=== PATIENT | male | born 1940 | race Caucasian/White ===

== ENCOUNTER → 2016-10-29 | Outpatient (CLI) | payer MEDICARE, OTHER | LOC: OD 11:35 | PROVIDERS: ATTEND Radiology Radiation Oncology | DX: C61 Malignant neoplasm of prostate (principal) | CPT/HCPCS: 36415; 84153 ==

== ENCOUNTER → 2016-11-19 | Outpatient (CLI) | payer MEDICARE, OTHER ==
--- NOTE | 2016-11-19 16:35 | RADIOLOGY REPORT (SQ) ---
EXAM DESCRIPTION: CT CHEST WITH COMPLETED DATE/TIME: 11/19/2016 3:50 pm REASON FOR STUDY: COUGH/COPD, UNSPECIFIED R05 COUGH J44.9 CHRONIC OBSTRUCTIVE PULMONARY DISEASE, U NSPECIFIED COMPARISON: 10/03/2014 TECHNIQUE: CT scan of the chest performed using helical scanning technique with dynamic intravenous contrast injection. Images reviewed with lung, soft tissue and bone windows. Reconstructed coronal and sagittal MPR images reviewed. All images stored on PACS. All CT scanners at this facility use dose modulation, iterative reconstruction, and/or weight based d osing when appropriate to reduce radiation dose to as low as reasonably achievable (ALARA). [facility]: Dose Right [facility]: CareDose [facility]: Dose Right [facility]: Teradose 4D [facility]: [employer] CONTRAST TYPE AND DOSE: contrast/concentration: Isovue 370.00 mg/ml; Total Contrast Delivered: 80.0 ml; Total Saline Delivered: 55.0 ml RENAL FUNCTION: Creatinine 1.1 RADIATION DOSE: Up-to-date CT equipment and radiation dose reduction techniques were employed. CTDIv ol: 13.6 mGy. DLP: 523 mGy-cm. . LIMITATIONS: None. FINDINGS: LUNGS AND PLEURA: No opacities, nodules, masses. No pneumothorax. No effusions. HILAR AND MEDIASTINAL STRUCTURES: No identified masses or abnormal nodes. HEART AND VASCULAR STRUCTURES: No aneurysm or dissection. No central pulmonary emboli. No pericardi al effusion. HARDWARE: None in the chest. UPPER ABDOMEN: No significant findings. Limited exam. THYROID AND OTHER SOFT TISSUES: No masses. No adenopathy. BONES: No significant finding. OTHER: No other significant finding. IMPRESSION: NORMAL CT OF THE CHEST WITH IV CONTRAST. TECHNICAL DOCUMENTATION: JOB ID: [id number] Quality ID # [id number]: Final reports with documentation of one or more dose reduction techniques (e.g., Au tomated exposure control, adjustment of the mA and/or kV according to patient size, use of iterative reconstruction technique) 2010 [employer]- All Rights Reserved
== END ==
LOC: RAD 15:10
PROVIDERS: ATTEND Internal Medicine
DX: J44.9 Chronic obstructive pulmonary disease, unspecified (principal); R05 Cough
CPT/HCPCS: 71260; 82565

== ENCOUNTER 2016-12-02 15:48 | Emergency (ER) | payer MEDICARE, OTHER ==
[2016-12-02] MEDS ORDERED: ACETAMINOPHEN 325 MG TABLET PO ONE (16:06)
--- NOTE | 2016-12-02 16:09 | ER Document Report ---
ED Medical Screen (RME) - General Chief Complaint: Eye Pain Stated Complaint: HEAD LACERATION Time Seen by Provider: 12/02/16 16:03 Notes: Patient is a 76-year-old male, past medical history chronic back pain, COPD, presents with right eyelid laceration and double vision after he hit his right orbit on his car door. No double vision or blurry vision before the incident. Unknown last tetanus status. Denies LOC, neck pain or heavy bleeding. PE: 1.5 cm right upper eyelid laceration/skin tear, PERRL, EOMI, tenderness over right superior orbit I have greeted and performed a rapid initial assessment of this patient. A comprehensive ED assessment and evaluation of the patient, analysis of test results and completion of the medical decision making process will be conducted by additional ED providers. TRAVEL OUTSIDE OF THE [place] IN LAST 30 DAYS: No - Related Data Allergies/Adverse Reactions: No Known Allergies Allergy (Verified 11/24/12 13:48) Past Medical History - Past Medical History Cardiac Medical History: Reports: Hx Hypertension Denies: Hx Coronary Artery Disease, Hx Heart Attack Pulmonary Medical History: Reports: Hx Asthma, Hx Bronchitis, Hx COPD, Hx Pneumonia Neurological Medical History: Denies: Hx Cerebrovascular Accident, Hx Seizures Renal/ Medical History: Denies: Hx Peritoneal Dialysis GI Medical History: Reports: Hx Gastroesophageal Reflux Disease Musculoskeltal Medical History: Reports Hx Arthritis Psychiatric Medical History: Reports: Hx Depression Past Surgical History: Reports: Hx Orthopedic Surgery - Immunizations Immunizations up to date: Yes Hx Diphtheria, Pertussis, Tetanus Vaccination: No Physical Exam - Vital signs Vitals: Temp Pulse Resp BP Pulse Ox 97.7 F 65 16 146/92 H 92 12/02/16 15:53 12/02/16 15:53 12/02/16 15:53 12/02/16 15:53 12/02/16 15:53 Course - Vital Signs Vital signs: Temp Pulse Resp BP Pulse Ox 97.7 F 65 16 146/92 H 92 12/02/16 15:53 12/02/16 15:53 12/02/16 15:53 12/02/16 15:53 12/02/16 15:53
[2016-12-02] MEDS ORDERED: DIPH/PERTUSS(ACELL)/TETANUS VAC/PF 0.5 ML SYR (>=10YO) IM ONE (16:27)
--- NOTE | 2016-12-02 16:37 | ER Document Report ---
ED General - General Stated Complaint: HEAD LACERATION Time Seen by Provider: 12/02/16 16:03 Notes: Presents with right eye pain and blurry vision, acute onset about an hour ago, moderate, worse with looking up, since he smacked his right orbital region on a van in his wheelchair. No loss of consciousness. No flashes or floaters. There is a skin tear to his right upper eyebrow. TRAVEL OUTSIDE OF THE [place] IN LAST 30 DAYS: No - Related Data Allergies/Adverse Reactions: bee venom protein (honey bee) Allergy (Verified 12/02/16 16:12) honey Allergy (Verified 12/02/16 16:11) Past Medical History - Social History Smoking Status: Smoker,Current Status Unk Chew tobacco use (# tins/day): No Drug Abuse: None Family History: Reviewed & Not Pertinent Patient has suicidal ideation: No Patient has homicidal ideation: No - Past Medical History Cardiac Medical History: Reports: Hx Hypertension Denies: Hx Coronary Artery Disease, Hx Heart Attack Pulmonary Medical History: Reports: Hx Asthma, Hx Bronchitis, Hx COPD, Hx Pneumonia Neurological Medical History: Denies: Hx Cerebrovascular Accident, Hx Seizures Renal/ Medical History: Denies: Hx Peritoneal Dialysis GI Medical History: Reports: Hx Gastroesophageal Reflux Disease Musculoskeltal Medical History: Reports Hx Arthritis Psychiatric Medical History: Reports: Hx Depression Past Surgical History: Reports: Hx Orthopedic Surgery - Immunizations Immunizations up to date: Yes Hx Diphtheria, Pertussis, Tetanus Vaccination: No Hx Pneumococcal Vaccination: 06/08/04 Review of Systems - Review of Systems Notes: GEN: Denies fever, chills, weight loss ENT: Denies sore throat, nasal discharge, ear pain EYES: Blurry vision, right eye pain CV: Denies chest pain, palpitations, edema RESP: Denies cough, shortness of breath, wheezing GI: Denies abdominal pain, nausea, vomiting, diarrhea MSK: Denies joint pain/swelling, edema, SKIN: Denies rash, skin lesions LYMPH: Denies swollen glands/lymph nodes NEURO: Denies headache, focal weakness or numbness, dizziness PSYCH: Denies depression, suicidal or homicidal ideation Physical Exam - Vital signs Vitals: Temp Pulse Resp BP Pulse Ox 97.7 F 65 16 146/92 H 92 12/02/16 15:53 12/02/16 15:53 12/02/16 15:53 12/02/16 15:53 12/02/16 15:53 - Notes Notes: General: No acute distress, well-nourished Head: Atraumatic, normocephalic ENT: Mouth normal, oropharynx moist, no exudates or tonsillar enlargement Eyes: 1.5 cm skin tear on the upper eye brow/orbital rim impaired upgaze on the right. Focal small amount of subconjunctival hemorrhage at about 4:00, 1 mm x 2 mm. Pupils are equal round and reactive bilaterally at 2 mm. Neck: No JVD, supple, no guarding CVS: Normal rate, regular rhythm, no murmurs Resp: No resp distress, equal and normal breath sounds bilaterally GI: Nondistended, soft, no tenderness to palpation, no rebound or guarding Ext: No deformities, no edema, normal range of motion in upper and lower ext Skin: No rash, warm Lymphatic: No lymphadenopathy noted Neuro: Awake, alert. Face symmetric. Course - Re-evaluation Re-evalutation: 12/02/16 16:37 She presents with subjective blurry vision in the eyebrow laceration after direct trauma. Not concerned about loss of consciousness or traumatic brain injury. He does however have paralyzed upgaze on the right side, and his CAT scan shows entrapped extraocular muscles and orbital floor defect. Patient will be repaired. I spoke with Dr. Schmidt from ophthalmology who states that he will see the patient first thing in the morning, and that if the patient is not vomiting or having bradycardia from the ocular reflex that he is safe to be discharged with urgent follow-up. I also spoke with Dr. Musa best from maxillofacial surgery who agrees with patient being able to follow up tomorrow morning for surgery scheduling. He will contact patient for this appointment. He did not recommend antibiotics. 12/02/16 17:11 P laceration repaired, pain controlled. I reviewed the plan with the patient's son. Given Any. - Vital Signs Vital signs: Temp Pulse Resp BP Pulse Ox 97.7 F 63 16 146/72 H 96 12/02/16 15:59 12/02/16 15:59 12/02/16 15:53 12/02/16 15:59 12/02/16 15:59 - Diagnostic Test Radiology reviewed: Image reviewed, Reports reviewed Procedures - Laceration/Wound Repair Right Upper Face Time completed: 16:55 Wound length (cm): 3 Wound's Depth, Shape: Superficial Laceration pre-procedure: Sterile PPE donned, Betadine prep applied, Shur-Clens applied Anesthetic type: 1% Lidocaine Volume Anesthetic (mLs): 2 Wound explored: Clean Irrigated w/ Saline (mLs): 50 Wound Repaired With: Sutures Suture Size/Type: 5:0, Ethilon Number of Sutures: 4 Layer Closure?: No Notes: 12/02/16 16:56 Eyebrow Discharge - Discharge Clinical Impression: Orbital floor (blow-out) closed fracture Laceration of eyebrow, right Qualifiers: Encounter type: initial encounter Qualified Code(s): S01.111A - Laceration without foreign body of right eyelid and periocular area, initial encounter Condition: Good Disposition: HOME, SELF-CARE Instructions: Antibiotic Ointment Protection ([facility]), Laceration Care ([facility]) Additional Instructions: Discussed, you have a broken bone interface which can affect her vision, and must be corrected with surgery. We will schedule the surgery tomorrow when you see Dr. Schmidt and Dr. best. There are information is below. If you have any issues getting into either other offices please return to the emergency department. Follow-up with Dr. Schmidt at 8 AM, then please follow-up with Dr. best immediately afterward. Both of their offices are expecting your call. Sutures come out in [address] BEST [address] [place] [address] Dr. Schmidt Address: [address] [place] [id number]
--- NOTE | 2016-12-02 16:38 | RADIOLOGY REPORT (SQ) ---
EXAM DESCRIPTION: CT ORBIT/SELLA WITHOUT COMPLETED DATE/TIME: 12/02/2016 4:17 pm REASON FOR STUDY: right orbit injury, double vision COMPARISON: None. TECHNIQUE: Noncontrasted images through the orbits windowed for bone and soft tissue. Additional co josie and sagittal reconstructed images reviewed. All images stored on PACS. All CT scanners at this facility use dose modulation, iterative reconstruction, and/or weight based d osing when appropriate to reduce radiation dose to as low as reasonably achievable (ALARA). [facility]: Dose Right [facility]: CareDose [facility]: Dose Right [facility]: Teradose 4D [facility]: [employer] RADIATION DOSE: Up-to-date CT equipment and radiation dose reduction techniques were employed. CTDIv ol: 30.4 mGy. DLP: 391 mGy-cm. mGy. LIMITATIONS: None. FINDINGS: FACIAL BONES: Right orbital floor fracture described below. No other facial fractures are identified. Nasal bones, zygomatic arches are intact. ORBITS: A right orbital floor fracture is present, with a bony gap in the orbital floor 13 mm in diam eter. Through the bony gap, there is herniation of the inferior rectus muscle and orbital fat. Thes e changes are best shown on coronal reconstruction images 23 through 29. This report was called to Naheed Bush. No left orbital floor fracture. No right or left medial orbital wall fracture. Post bilateral cataract surgery. Globes, optic nerves intact. PARANASAL SINUSES: Bone cement is present in the floor the right maxillary sinus related to dental im plants. No nasal polyps. Maxillary sinus outlets are patent. Pneumatized middle turbinates. SOFT TISSUES: No mass or edema. INFERIOR BRAIN: Limited view. No acute findings. Bifrontal white matter disease. OTHER: No other significant finding. IMPRESSION: Right orbital floor fracture with herniation of orbital fat and inferior rectus muscle i nto the upper aspect of the right maxillary sinus. TECHNICAL DOCUMENTATION: JOB ID: [id number] Quality ID # [id number]: Final reports with documentation of one or more dose reduction techniques (e.g., Au tomated exposure control, adjustment of the mA and/or kV according to patient size, use of iterative reconstruction technique) 2010 [employer]- All Rights Reserved
[2016-12-02] MEDS ORDERED: LIDOCAINE 1% INJ-PF (10 MG/ML) 30 ML SDV ONE (16:49)
[2016-12-02] MEDS ORDERED: OXYCODONE HCL IR 5 MG TABLET PO ONE (17:01)
[2016-12-02 17:16] VITALS: BP 125/74
== END 2016-12-02 17:14 | disposition home or self-care (01) ==
LOC: ER 15:48
PROC: 0HQ1XZZ Repair Face Skin, External Approach (ICD-10-PCS; principal; 2016-12-02)
DX: S02.31XA Fracture of orbital floor, right side, initial encounter for closed fracture (principal); S01.111A Laceration without foreign body of right eyelid and periocular area, initial encounter; Z23 Encounter for immunization; W22.09XA Striking against other stationary object, initial encounter; F17.200 Nicotine dependence, unspecified, uncomplicated; I10 Essential (primary) hypertension; J44.9 Chronic obstructive pulmonary disease, unspecified; K21.9 Gastro-esophageal reflux disease without esophagitis
CPT/HCPCS: 99283; 90471; 70480; 90715; 12013; A9270 ×2; J3490

== ENCOUNTER → 2017-05-07 | Outpatient (CLI) | payer MEDICARE, OTHER | LOC: OD 10:38 | PROVIDERS: ATTEND Radiology Radiation Oncology | DX: C61 Malignant neoplasm of prostate (principal) | CPT/HCPCS: 36415; 84153 ==

== ENCOUNTER → 2018-05-06 | Outpatient (CLI) | payer MEDICARE, OTHER | LOC: OD 11:36 | PROVIDERS: ATTEND Radiology Radiation Oncology | DX: C61 Malignant neoplasm of prostate (principal) | CPT/HCPCS: 36415; 84153 ==

== ENCOUNTER → 2018-05-10 | Outpatient (CLI) | payer MEDICARE, OTHER ==
--- NOTE | 2018-05-10 17:42 | RADIOLOGY REPORT (SQ) ---
EXAM DESCRIPTION: CHEST PA/LATERAL COMPLETED DATE/TIME: 05/10/2018 5:18 pm REASON FOR STUDY: PNEUMONIA COMPARISON: 11/16/2013 EXAM PARAMETERS: NUMBER OF VIEWS: two views TECHNIQUE: Digital Frontal and Lateral radiographic views of the chest acquired. RADIATION DOSE: NA LIMITATIONS: none FINDINGS: LUNGS AND PLEURA: No opacities, masses or pneumothorax. No pleural effusion. MEDIASTINUM AND HILAR STRUCTURES: No masses or contour abnormalities. HEART AND VASCULAR STRUCTURES: Heart normal size. No evidence for failure. BONES: No acute findings. HARDWARE: None in the chest. OTHER: No other significant finding. IMPRESSION: NO SIGNIFICANT RADIOGRAPHIC FINDING IN THE CHEST. TECHNICAL DOCUMENTATION: JOB ID: [id number] [employer]- All Rights Reserved Reading location - IP/workstation name: [email or web address]
== END ==
LOC: OD 17:04
PROVIDERS: ATTEND Internal Medicine
DX: J18.9 Pneumonia, unspecified organism (principal)
CPT/HCPCS: 71046

== ENCOUNTER 2018-09-01 10:58 | Observation (INO) | payer MEDICARE, OTHER ==
--- NOTE | 2018-09-01 11:12 | ER Document Report ---
ED Medical Screen (RME) - General Chief Complaint: Abdominal Pain Stated Complaint: ABDOMINAL PAIN Time Seen by Provider: 09/01/18 11:07 Primary Care Provider: GIBSON HAMMOND MD [Primary Care Provider] - Follow up as needed Notes: Patient is a 78-year-old male that presents to the emergency department for chief complaint of epigastric abdominal pain. Patient was sent over from his primary care physician, for direct admission, and workup for his epigastric abdominal pain that he is been having for approximately 10 days, he gets minimal relief with [place], does not seem to be better or worse with meals, denies chest pain or shortness of breath. ROS: Other than noted above, the 12 point review of systems was reviewed with the patient and were negative, all pertinent findings are included in the HPI. PHYSICAL EXAMINATION: Vital signs reviewed. GENERAL: Elderly male, no acute distress HEAD: Atraumatic, normocephalic. EYES: Pupils equal round extraocular movements intact, conjunctiva are normal. ENT: Nares patent NECK: Normal range of motion CV: Heart regular rate and rhythm LUNGS: No respiratory distress Musculoskeletal: Patient currently in a wheelchair, but does move all extrem ities NEUROLOGICAL: Normal speech PSYCH: Normal mood, normal affect. MDM: Patient seen and examined for rapid initial assessment. Vital signs reviewed. A comprehensive ED assessment and evaluation of the patient, analysis of test results and completion of the medical decision making process will be conducted by additional ED providers. *Note is created using voice recognition software and may contain spelling, syntax or grammatical errors. TRAVEL OUTSIDE OF THE [place] IN LAST 30 DAYS: No - Related Data Allergies/Adverse Reactions: bee venom protein (honey bee) Allergy (Verified 09/01/18 11:02) honey Allergy (Verified 09/01/18 11:02) Past Medical History - Past Medical History Cardiac Medical History: Reports: Hx Hypertension Denies: Hx Coronary Artery Disease, Hx Heart Attack Pulmonary Medical History: Reports: Hx Asthma, Hx Bronchitis, Hx COPD, Hx Pneumonia Neurological Medical History: Denies: Hx Cerebrovascular Accident, Hx Seizures Renal/ Medical History: Denies: Hx Peritoneal Dialysis GI Medical History: Reports: Hx Gastroesophageal Reflux Disease Musculoskeltal Medical History: Reports Hx Arthritis Psychiatric Medical History: Reports: Hx Depression Past Surgical History: Reports: Hx Orthopedic Surgery - Immunizations Immunizations up to date: Yes Hx Diphtheria, Pertussis, Tetanus Vaccination: No Physical Exam - Vital signs Vitals: Temp Pulse Resp BP Pulse Ox 97.5 F 62 16 138/72 H 93 09/01/18 11:05 09/01/18 11:05 09/01/18 11:05 09/01/18 11:05 09/01/18 11:05 Course - Vital Signs Vital signs: Temp Pulse Resp BP Pulse Ox 97.5 F 62 16 138/72 H 93 09/01/18 11:05 09/01/18 11:05 09/01/18 11:05 09/01/18 11:05 09/01/18 11:05 Doctor's Discharge - Discharge Referrals: GIBSON HAMMOND MD [Primary Care Provider] - Follow up as needed
[2018-09-01] MEDS ORDERED: 1/2 NORMAL SALINE 1,000 ML IV PRN ×2 (11:21→16:27)
[2018-09-01 11:53] LABS: ABSOLUTE EOSINOPHILS # (AUTO) 0.2 10^3/uL (0.0-0.6); ABSOLUTE MONOCYTES (AUTO) 0.6 10^3/uL (0.1-1.4); ABSOLUTE NEUT (AUTO) 3.6 10^3/uL (1.7-8.2); BASOPHILS % (AUTO) 0.6 % (0-2); EOSINOPHILS % (AUTO) 3.6 % (0-6); HEMATOCRIT 36.5 % (37.9-51.0); HEMOGLOBIN 12.9 g/dL (13.5-17.0); LYMPHOCYTES % (AUTO) 18.7 % (13-45); MEAN CORPUSCULAR HEMOGLOBIN 30.4 pg (27.0-33.4); MEAN CORPUSCULAR HGB CONC 35.3 g/dL (32.0-36.0); MEAN CORPUSCULAR VOLUME 86 fl (80-97); MONOCYTES % (AUTO) 10.3 % (3-13); PLATELET COUNT 216 10^3/uL (150-450); RED BLOOD COUNT 4.24 10^6/uL (4.35-5.55); RED CELL DISTRIBUTION WIDTH 13.6 % (11.5-14.0); SEGMENTED NEUTROPHILS % (AUTO) 66.8 % (42-78); TOTAL CELLS COUNTED % (AUTO) 100 %; WHITE BLOOD COUNT 5.4 10^3/uL (4.0-10.5)
[2018-09-01 12:14] LABS: ALANINE AMINOTRANSFERASE 21 U/L (21-72); ALBUMIN 4.4 g/dL (3.5-5.0); ALKALINE PHOSPHATASE 56 U/L (38-126); AMYLASE 118 U/L (30-110); ANION GAP 12 (5-19); ASPARTATE AMINO TRANSFERASE 20 U/L (17-59); BILIRUBIN,DIRECT 0.4 mg/dL (0.0-0.4); BILIRUBIN,TOTAL 0.5 mg/dL (0.2-1.3); BLOOD UREA NITROGEN 22 mg/dL (7-20); CALCIUM 10.1 mg/dL (8.4-10.2); CARBON DIOXIDE 32 mmol/L (22-30); CHLORIDE 96 mmol/L (98-107); GLUCOSE 92 mg/dL (75-110); LIPASE 169.4 U/L (23-300); POTASSIUM 3.1 mmol/L (3.6-5.0); SODIUM 139.5 mmol/L (137-145); TOTAL PROTEIN 7.2 g/dL (6.3-8.2)
[2018-09-01 12:30] LABS: FREE T4 (FREE THYROXINE) 1.14 ng/dL (0.78-2.19)
[2018-09-01 12:44] LABS: THYROID STIMULATING HORMONE 2.07 uIU/mL (0.47-4.68)
[2018-09-01 13:55] LABS: APPEARANCE,URINE CLEAR; BILIRUBIN,URINE NEGATIVE (NEGATIVE); COLOR,URINE YELLOW; GLUCOSE, URINE NEGATIVE (NEGATIVE); KETONES,URINE NEGATIVE (NEGATIVE); LEUKOCYTE ESTERASE,URINE NEGATIVE (NEGATIVE); NITRITE,URINE NEGATIVE (NEGATIVE); PROTEIN,URINE NEGATIVE (NEGATIVE); URINE SPECIFIC GRAVITY 1.016; UROBILINOGEN,URINE NEGATIVE mg/dL (<2.0)
--- NOTE | 2018-09-01 14:21 | RADIOLOGY REPORT (SQ) ---
EXAM DESCRIPTION: CT ABD/PELVIS WITH IV ONLY COMPLETED DATE/TIME: 09/01/2018 1:58 pm REASON FOR STUDY: abdmonal pain per ojeboubo orders COMPARISON: CT chest 11/19/2016 TECHNIQUE: CT scan of the abdomen and pelvis performed using helical scanning technique with dynamic intravenous contrast injection. No oral contrast. Images reviewed with lung, soft tissue, and bone windows. Reconstructed coronal and sagittal MPR images reviewed. Delayed images for evaluation of the urinary system also acquired. All images stored on PACS. All CT scanners at this facility use dose modulation, iterative reconstruction, and/or weight based d osing when appropriate to reduce radiation dose to as low as reasonably achievable (ALARA). [facility]: Dose Right [facility]: CareDose [facility]: Dose Right [facility]: Teradose 4D [facility]: [employer] CONTRAST TYPE AND DOSE: contrast/concentration: Isovue 350.00 mg/ml; Total Contrast Delivered: 94.0 ml; Total Saline Delivered: 71.0 ml RENAL FUNCTION: Creatinine 1.3 RADIATION DOSE: CT Rad equipment meets quality standard of care and radiation dose reduction techniq ues were employed. CTDIvol: 7.8 - 10.5 mGy. DLP: 1047 mGy-cm.. LIMITATIONS: None. FINDINGS: LOWER CHEST: No significant findings. No nodules or infiltrates. LIVER: Normal size. No masses. No dilated ducts. SPLEEN: Normal size. No focal lesions. PANCREAS: No masses. No significant calcifications. No adjacent inflammation or peripancreatic fluid collections. Pancreatic duct not dilated. GALLBLADDER: No identified stones by CT criteria. No inflammatory changes to suggest cholecystitis. ADRENAL GLANDS: No significant masses or asymmetry. RIGHT KIDNEY AND URETER: No solid masses. No significant calcifications. No hydronephrosis or hyd roureter. LEFT KIDNEY AND URETER: 14 mm hyperdense well-circumscribed nodule in the left lower pole kidney, abo ut 60 Hounsfield units. It is difficult to discern whether this represents a small hemorrhagic cyst or small solid nodule. Ultrasound of the kidneys with particular attention to the left lower pole ki dney recommended. No significant calcifications. No hydronephrosis or hydroureter. AORTA AND VESSELS: No aneurysm. No dissection. Renal arteries, SMA, celiac without stenosis. RETROPERITONEUM: No retroperitoneal adenopathy, hemorrhage or masses. BOWEL AND PERITONEAL CAVITY: No CT evidence of free intraperitoneal air or fluid. There are colonic diverticuli without CT signs of acute diverticulitis APPENDIX: Normal. PELVIS: No mass. No free fluid. Normal bladder. ABDOMINAL WALL: No masses. No hernias. BONES: Diffuse degenerative disc changes lumbar spine OTHER: No other significant finding. IMPRESSION: 14 mm left lower pole hemorrhagic cyst versus small solid nodule. Dedicated bilateral r enal ultrasound recommended for followup. Descending and sigmoid colon diverticuli without CT signs of acute diverticulitis. TECHNICAL DOCUMENTATION: JOB ID: [id number] Quality ID # [id number]: Final reports with documentation of one or more dose reduction techniques (e.g., Au tomated exposure control, adjustment of the mA and/or kV according to patient size, use of iterative reconstruction technique) 2010 [employer]- All Rights Reserved Reading location - IP/workstation name: [email or web address]
[2018-09-01] MEDS ORDERED: HYDROCHLOROTHIAZIDE PO SCH (17:00)
[2018-09-01] MEDS ORDERED: ATORVASTATIN PO SCH (17:00)
[2018-09-01] MEDS ORDERED: (PENDING PHARMACY ID) (Alfuzosin Hcl [Alfuzosin Hcl Er] 10 MG) PO SCH (17:00)
[2018-09-01] MEDS ORDERED: LORATADINE PO SCH (17:00)
[2018-09-01] MEDS ORDERED: OLMESARTAN PO SCH (17:00)
[2018-09-01] MEDS ORDERED: (PENDING PHARMACY ID) (Oxycodone Hcl/Acetaminophen [Oxycodon-Acetaminophen 7.5-325] 1 TAB) PO SCH (17:00)
[2018-09-01] MEDS ORDERED: [UNRECOGNIZED DRUG - OTHER] PO SCH (17:00)
[2018-09-01] MEDS ORDERED: AMLODIPINE PO SCH (17:00)
[2018-09-01] MEDS ORDERED: (PENDING PHARMACY ID) (Fluticasone/Salmeterol 1 INH) IH SCH (17:00)
[2018-09-01] MEDS: POTASSI CL 40 MEQ/D5-1/2NS 1L 40 MEQ/1,000 ML RTUINJ IV PRN (17:41)
[2018-09-01] MEDS: HYDROCHLOROTHIAZIDE 12.5 MG TABLET PO SCH (18:31)
[2018-09-01] MEDS: LOSARTAN POTASSIUM 50 MG TABLET PO SCH (18:31)
[2018-09-01] MEDS: AMLODIPINE BESYLATE 10 MG TABLET PO SCH (18:32)
[2018-09-01] MEDS: FINASTERIDE 5 MG TABLET PO SCH (18:32)
[2018-09-01] MEDS: TAMSULOSIN HCL 0.4 MG CAP.SR.24H PO SCH (18:32)
[2018-09-01] MEDS: ATORVASTATIN CALCIUM 40 MG TABLET PO SCH (18:32)
[2018-09-01] MEDS: LORATADINE 10 MG TABLET PO SCH (18:33)
[2018-09-01] MEDS: ENOXAPARIN SODIUM INJ 30 MG/0.3 ML DISP.SYRIN SUBCUT SCH (18:33)
[2018-09-01] MEDS: FLUOXETINE HCL 20 MG CAPSULE PO SCH (18:33)
[2018-09-01] MEDS: OXYCODONE HCL IR 5 MG TABLET PO SCH ×2 (18:34→22:56)
[2018-09-01] MEDS: OXYCODONE-ACETAMINOPHEN 5-325 MG TABLET PO SCH ×2 (18:34→22:57)
[2018-09-01] MEDS ORDERED: FLUTICASONE/VILANTEROL 200-25 MCG/DOSE IH ONE (20:55)
--- NOTE | 2018-09-01 21:27 | EKG REPORT ---
SEVERITY:- ABNORMAL ECG - SINUS RHYTHM FIRST DEGREE AV BLOCK PROBABLE LEFT VENTRICULAR HYPERTROPHY : Confirmed by: Christel Young MD 01-Sep-2018 21:26:17
[2018-09-01] MEDS: FLUTICASONE/VILANTEROL 200-25 MCG/DOSE IH SCH (21:51)
[2018-09-01] MEDS: DONEPEZIL HCL 5 MG TABLET PO SCH (21:52)
[2018-09-01] MEDS: TRAZODONE HCL 50 MG TABLET PO SCH (21:52)
[2018-09-01] MEDS ORDERED: (PENDING PHARMACY ID) (Trazodone Hcl [Desyrel] 200 MG) PO SCH (22:00)
[2018-09-01] MEDS ORDERED: (PENDING PHARMACY ID) (Donepezil Hcl [Aricept] 10 MG) PO SCH (22:00)
[2018-09-02 06:17] LABS: ANION GAP 8 (5-19); BLOOD UREA NITROGEN 24 mg/dL (7-20); CALCIUM 8.9 mg/dL (8.4-10.2); CARBON DIOXIDE 30 mmol/L (22-30); CHLORIDE 99 mmol/L (98-107); GLUCOSE 93 mg/dL (75-110); SODIUM 136.7 mmol/L (137-145)
[2018-09-02 06:25] LABS: POTASSIUM 2.9 mmol/L (3.6-5.0)
[2018-09-02] MEDS: OXYCODONE-ACETAMINOPHEN 5-325 MG TABLET PO SCH ×3 (06:53→21:47)
[2018-09-02] MEDS: OXYCODONE HCL IR 5 MG TABLET PO SCH ×3 (06:54→21:47)
[2018-09-02] MEDS: FLUTICASONE/VILANTEROL 200-25 MCG/DOSE IH SCH (09:51)
[2018-09-02] MEDS: ENOXAPARIN SODIUM INJ 30 MG/0.3 ML DISP.SYRIN SUBCUT SCH (09:51)
[2018-09-02] MEDS: FINASTERIDE 5 MG TABLET PO SCH (09:52)
[2018-09-02] MEDS: LOSARTAN POTASSIUM 50 MG TABLET PO SCH (09:52)
[2018-09-02] MEDS: LORATADINE 10 MG TABLET PO SCH (09:52)
[2018-09-02] MEDS: FLUOXETINE HCL 20 MG CAPSULE PO SCH (09:52)
[2018-09-02] MEDS: HYDROCHLOROTHIAZIDE 12.5 MG TABLET PO SCH (09:52)
--- NOTE | 2018-09-02 12:46 | PDOC CONSULTATION ---
Consultation Consult Date: 09/02/18 Attending physician:: ELSY PRETTY Consult reason:: Epigastric pain History of Present Illness Admission Date/PCP: 09/01/18 11:30 GIBSON HAMMOND MD History of Present Illness: MARTHA CHILDS is a 78 year old male I have been asked by Dr Escobedo to see this patient who has been admitted for epigastric pain CT scan done noted to be negative for diverticulitis\ patient notes pain with eating some nausea, some early satiety there is no melena EGD would be appropriate however he had eaten breakfast this am , was not able to perform EGD today will schedule for tomorrow Past Medical History Cardiac Medical History: Reports: Hypertension Denies: Coronary Artery Disease, Myocardial Infarction Pulmonary Medical History: Reports: Asthma, Bronchitis, Chronic Obstructive Pulmonary Disease (COPD), Pneumonia Neurological Medical History: Denies: Seizures GI Medical History: Reports: Gastroesophageal Reflux Disease Musculoskeltal Medical History: Reports: Arthritis Psychiatric Medical History: Reports: Depression Hematology: Denies: Anemia Past Surgical History Past Surgical History: Reports: Orthopedic Surgery Social History Smoking Status: Former Smoker Number of Years Smokin Last Time Smoked: 1974 Frequency of Alcohol Use: None Hx Recreational Drug Use: No Drugs: None Hx Prescription Drug Abuse: No Family History Family History: Reviewed & Not Pertinent Parental Family History Reviewed: Yes Children Family History Reviewed: Unknown Sibling(s) Family History Reviewed.: Unknown Medication/Allergy Home Medications: Amlodipine/Atorvastatin [Amlodipine-Atorvast 10-40 mg] 1 tab PO DAILY 10/03/14 Finasteride 5 mg PO DAILY 10/03/14 Fluoxetine HCl [Prozac] 40 mg PO DAILY 10/03/14 Fluticasone/Salmeterol [Advair 250-50 Diskus 14 Dose/Diskus] 1 inh IH DAILY 10/03/14 Loratadine [Claritin] 1 tab PO DAILY 10/03/14 Meloxicam 15 mg PO DAILY PRN 10/03/14 Trazodone HCl [Desyrel] 200 mg PO QHS 10/03/14 Alfuzosin HCl [Alfuzosin HCl ER] 10 mg PO DAILY 09/01/18 Aspirin/Caffeine [Back-Body Pain 500-32.5MG Cplt] 1 tab PO Q6HP PRN 09/01/18 Donepezil HCl [Aricept] 10 mg PO QHS 09/01/18 Olmesartan/Hydrochlorothiazide [Olmesartan-Hctz 40-12.5 mg Tab] 1 tab PO DAILY 09/01/18 Oxycodone HCl/Acetaminophen [Oxycodon-Acetaminophen 7.5-325] 1 tab PO Q8 Potassium Chloride [Klor-Con M20] 20 meq PO DAILY 09/01/18 Allergies/Adverse Reactions: cat dander Allergy (Verified 09/01/18 11:16) dog dander Allergy (Verified 09/01/18 11:16) Review of Systems Constitutional: ABSENT: fever(s), headache(s), night sweats, weakness Eyes: ABSENT: visual disturbances Ears: ABSENT: hearing changes Nose, Mouth, and Throat: ABSENT: mouth pain, sore throat Cardiovascular: ABSENT: edema, orthropnea, palpitations Respiratory: ABSENT: dyspnea, hemoptysis Gastrointestinal: ABSENT: diarrhea, hematochezia Genitourinary: ABSENT: dysuria, hematuria Musculoskeletal: ABSENT: deformity, joint swelling Integumentary: ABSENT: lesions, pruritus Neurological: ABSENT: syncope, tingling, tremor(s), vertigo Endocrine: ABSENT: polydipsia, polyphagia, polyuria Hematologic/Lymphatic: ABSENT: easy bruising Physical Exam Vital Signs: Temp Pulse Resp BP Pulse Ox 97.6 F 61 16 130/67 H 95 09/02/18 12:26 09/02/18 12:26 09/02/18 12:26 09/02/18 12:26 09/02/18 12:26 Intake & Output 09/01/18 09/02/18 09/03/18 06:59 06:59 06:59 Intake Total 1000 Output Total 1600 Balance -600 Weight 72.1 kg General appearance: PRESENT: no acute distress, well-developed Head exam: PRESENT: atraumatic, normocephalic Eye exam: PRESENT: EOMI, PERRLA. ABSENT: nystagmus, periorbital swelling, scleral icterus Mouth exam: PRESENT: moist, neck supple Throat exam: ABSENT: tonsillar exudate, tonsillogmegaly Neck exam: ABSENT: meningismus, tenderness, thyromegaly Respiratory exam: PRESENT: symmetrical, unlabored. ABSENT: tachypnea, wheezes Cardiovascular exam: PRESENT: RRR, +S1, +S2 GI/Abdominal exam: PRESENT: soft. ABSENT: Cheney's sign, rebound, rigid, tenderness Extremities exam: ABSENT: joint swelling Musculoskeletal exam: PRESENT: full ROM Neurological exam: PRESENT: oriented to time, oriented to situation, CN II-XII grossly intact Focused psych exam: ABSENT: restlessness Skin exam: PRESENT: normal color. ABSENT: mottled, pallor, urticaria, vesicles Results Laboratory Results: 09/01/18 11:40 09/02/18 05:38 09/01/18 09/01/18 09/02/18 11:40 13:41 05:38 Sodium 136.7 L Potassium 2.9 L* Chloride 99 Carbon Dioxide 30 Anion Gap 8 BUN 24 H Creatinine 1.34 H Est GFR ( Amer) > 60 Est GFR (Non-Af Amer) 51 L Glucose 93 Calcium 8.9 Magnesium TSH 2.07 Free T4 1.14 Urine Color YELLOW Urine Appearance CLEAR Urine pH 6.0 Ur Specific Trent 1.016 Urine Protein NEGATIVE Urine Glucose (UA) NEGATIVE Urine Ketones NEGATIVE Urine Blood NEGATIVE Urine Nitrite NEGATIVE Ur Leukocyte Esterase NEGATIVE Urine WBC (Auto) 0 Urine RBC (Auto) 1 09/02/18 05:38 Sodium Potassium Chloride Carbon Dioxide Anion Gap BUN Creatinine Est GFR ( Amer) Est GFR (Non-Af Amer) Glucose Calcium Magnesium 2.1 TSH Free T4 Urine Color Urine Appearance Urine pH Ur Specific Trent Urine Protein Urine Glucose (UA) Urine Ketones Urine Blood Urine Nitrite Ur Leukocyte Esterase Urine WBC (Auto) Urine RBC (Auto) 09/01/18 09/01/18 09/01/18 11:40 17:45 23:31 Troponin I < 0.012 < 0.012 < 0.012 09/02/18 05:38 Troponin I < 0.012 Impressions: Abdomen/Pelvis CT 09/01/18 11:20 IMPRESSION: 14 mm left lower pole hemorrhagic cyst versus small solid nodule. Dedicated bilateral renal ultrasound recommended for followup. Descending and sigmoid colon diverticuli without CT signs of acute diverticulitis. Assessment & Plan - Diagnosis (1) Epigastric pain Plan: CT scan is negative will need EGD Risks, benefits and alternatives are discussed with the patient in detail further recommendations to follow will schedule for tomorrow , NPO post midnight spoke to patient RN - Time Time Spent: 50 to 70 Minutes
[2018-09-02] MEDS: POTASSI CL 40 MEQ/D5-1/2NS 1L 40 MEQ/1,000 ML RTUINJ IV PRN (15:28)
[2018-09-02] MEDS: POTASSIUM CHLORIDE 10 MEQ CAPSULE.ER PO SCH ×4 (15:29→20:06)
[2018-09-02] MEDS: ATORVASTATIN CALCIUM 40 MG TABLET PO SCH (18:50)
[2018-09-02] MEDS: TAMSULOSIN HCL 0.4 MG CAP.SR.24H PO SCH (18:50)
[2018-09-02] MEDS: AMLODIPINE BESYLATE 10 MG TABLET PO SCH (18:50)
--- NOTE | 2018-09-02 20:09 | PDOC H&P ---
History of Present Illness Admission Date/PCP: 09/01/18 11:30 GIBSON HAMMOND MD History of Present Illness: MARTHA CHILDS is a 78 year old male.He came to the office for evaluation of epigastric pain of few days duration the pain is not associated with activity, it is not provoked by activity or emotional outburst. The pain is not associated with food intake there is no diarrhea or vomiting because the potential differential diagnosis is quite long in this patient I recommended that he should be admitted for observation and evaluation of the potential differential diagnosis. The initial intent was to admit him directly from the office but there was no bed available in the hospital, on the advice of the nursing fertilizer supervisor patient was directed to the emergency room, he was seen in the emergency room evaluated, a CAT scan of the abdomen and pelvis with IV contrast was obtained it demonstrated a 14 mm hyperdense well-circumscribed nodule in the left lower pole of the kidney the possible diagnosis includes hemorrhagic cyst etc. Past Medical History Cardiac Medical History: Reports: Hypertension Pulmonary Medical History: Reports: Asthma, Bronchitis, Chronic Obstructive Pulmonary Disease (COPD), Pneumonia GI Medical History: Reports: Gastroesophageal Reflux Disease Musculoskeltal Medical History: Reports: Arthritis Psychiatric Medical History: Reports: Depression Past Surgical History Past Surgical History: Reports: Orthopedic Surgery Social History Smoking Status: Former Smoker Number of Years Smokin Last Time Smoked: 1974 Frequency of Alcohol Use: None Hx Recreational Drug Use: No Drugs: None Hx Prescription Drug Abuse: No Family History Family History: Reviewed & Not Pertinent Parental Family History Reviewed: Yes Children Family History Reviewed: Yes Sibling(s) Family History Reviewed.: Yes Medication/Allergy Home Medications: Amlodipine/Atorvastatin [Amlodipine-Atorvast 10-40 mg] 1 tab PO DAILY 10/03/14 Finasteride 5 mg PO DAILY 10/03/14 Fluoxetine HCl [Prozac] 40 mg PO DAILY 10/03/14 Fluticasone/Salmeterol [Advair 250-50 Diskus 14 Dose/Diskus] 1 inh IH DAILY 10/03/14 Loratadine [Claritin] 1 tab PO DAILY 10/03/14 Meloxicam 15 mg PO DAILY PRN 10/03/14 Trazodone HCl [Desyrel] 200 mg PO QHS 10/03/14 Alfuzosin HCl [Alfuzosin HCl ER] 10 mg PO DAILY 09/01/18 Aspirin/Caffeine [Back-Body Pain 500-32.5MG Cplt] 1 tab PO Q6HP PRN 09/01/18 Donepezil HCl [Aricept] 10 mg PO QHS 09/01/18 Olmesartan/Hydrochlorothiazide [Olmesartan-Hctz 40-12.5 mg Tab] 1 tab PO DAILY 09/01/18 Oxycodone HCl/Acetaminophen [Oxycodon-Acetaminophen 7.5-325] 1 tab PO Q8 09/01/18 Potassium Chloride [Klor-Con M20] 20 meq PO DAILY 09/01/18 Allergies/Adverse Reactions: cat dander Allergy (Verified 09/01/18 11:16) dog dander Allergy (Verified 09/01/18 11:16) Review of Systems Constitutional: ABSENT: chills, fever(s), headache(s), weight gain, weight loss Eyes: ABSENT: visual disturbances Ears: ABSENT: hearing changes Cardiovascular: ABSENT: chest pain, dyspnea on exertion, edema, orthropnea, palpitations Respiratory: ABSENT: cough, hemoptysis Gastrointestinal: PRESENT: abdominal pain Genitourinary: ABSENT: dysuria, hematuria Musculoskeletal: ABSENT: joint swelling Integumentary: ABSENT: rash, wounds Neurological: ABSENT: abnormal gait, abnormal speech, confusion, dizziness, focal weakness, syncope Psychiatric: ABSENT: anxiety, depression, homidical ideation, suicidal ideation Endocrine: ABSENT: cold intolerance, heat intolerance, menstrual abnormalities, polydipsia, polyuria Hematologic/Lymphatic: ABSENT: easy bleeding, easy bruising, lymphadenopathy Physical Exam Vital Signs: Temp Pulse Resp BP Pulse Ox 97.9 F 59 L 18 150/71 H 96 09/02/18 16:21 09/02/18 16:21 09/02/18 16:21 09/02/18 16:21 09/02/18 16:21 Intake & Output 09/01/18 09/02/18 09/03/18 06:59 06:59 06:59 Intake Total 2000 1177 Output Total 1600 1400 Balance 400 -223 Weight 72.1 kg General appearance: PRESENT: no acute distress, well-developed, well-nourished Head exam: PRESENT: atraumatic, normocephalic Eye exam: PRESENT: conjunctiva pink, EOMI, PERRLA Ear exam: PRESENT: normal external ear exam Mouth exam: PRESENT: moist, tongue midline Neck exam: PRESENT: full ROM Respiratory exam: PRESENT: clear to auscultation abhi Cardiovascular exam: PRESENT: RRR, +S1, +S2 Pulses: PRESENT: normal dorsalis pedis pul, +2 pedal pulses bilateral Vascular exam: PRESENT: normal capillary refill GI/Abdominal exam: PRESENT: normal bowel sounds, soft Rectal exam: PRESENT: deferred Neurological exam: PRESENT: alert, CN II-XII grossly intact Psychiatric exam: PRESENT: appropriate affect, normal mood Skin exam: PRESENT: dry, intact, warm Results Laboratory Results: 09/01/18 11:40 09/02/18 05:38 09/02/18 09/02/18 05:38 05:38 Sodium 136.7 L Potassium 2.9 L* Chloride 99 Carbon Dioxide 30 Anion Gap 8 BUN 24 H Creatinine 1.34 H Est GFR ( Amer) > 60 Est GFR (Non-Af Amer) 51 L Glucose 93 Calcium 8.9 Magnesium 2.1 09/01/18 09/01/18 09/01/18 11:40 17:45 23:31 Troponin I < 0.012 < 0.012 < 0.012 09/02/18 05:38 Troponin I < 0.012 Impressions: Abdomen/Pelvis CT 09/01/18 11:20 IMPRESSION: 14 mm left lower pole hemorrhagic cyst versus small solid nodule. Dedicated bilateral renal ultrasound recommended for followup. Descending and sigmoid colon diverticuli without CT signs of acute diverticulitis. Assessment & Plan - Diagnosis (1) Epigastric pain Is this a current diagnosis for this admission?: Yes Plan: Patient will require EGD for further diagnostic evaluation
[2018-09-02] MEDS: DONEPEZIL HCL 5 MG TABLET PO SCH (21:46)
[2018-09-02] MEDS: TRAZODONE HCL 50 MG TABLET PO SCH (21:46)
--- NOTE | 2018-09-02 22:01 | RADIOLOGY REPORT (SQ) ---
CLINICAL DATA: 78-year-old male with questionable hemorrhagic cyst TECHNICAL DATA: Grayscale and Doppler ultrasound imaging of the abdomen was performed including imaging of the kidneys, bladder, aorta, inferior vena cava and common iliac artery origins. Comparison: CT abdomen and pelvis performed on 09/01/2018. FINDINGS: The right kidney measures 10.9 cm in length. The renal cortex is normal. There is no evidence of renal mass, calculi or perinephric fluid collection. There is no pelvocaliectasis. The left kidney measures 10.8 cm in length. The renal cortex is normal. There is no evidence of renal mass, calculi or perinephric fluid collection. There is a small focal area of decreased echogenicity arising from the inferior pole of the left kidney measuring 2.7 x 1.7 x 2.1 cm. This corresponds to abnormality noted on the prior CT abdomen and pelvis. This cannot definitely be confirmed as a simple cyst on this examination. There is no pelvocaliectasis. There is no free fluid in the abdomen. There is normal Doppler flow to both kidneys. The bladder is partially distended on this examination. No focal bladder abnormalities are appreciated. IMPRESSION: 1. Small focal area of decreased echogenicity arising from the inferior pole of the left kidney with a maximum dimension of 2.7 cm. This does not clearly represent a simple cyst. Consider follow-up imaging in 3-6 months to confirm stability or MR imaging with and without contrast for further characterization. 2. Otherwise, unremarkable retroperitoneal ultrasound.
[2018-09-03] MEDS: POTASSI CL 40 MEQ/D5-1/2NS 1L 40 MEQ/1,000 ML RTUINJ IV PRN ×2 (02:21→16:45)
[2018-09-03 04:24] LABS: ANION GAP 5 (5-19); BLOOD UREA NITROGEN 23 mg/dL (7-20); CARBON DIOXIDE 31 mmol/L (22-30); CHLORIDE 103 mmol/L (98-107); GLUCOSE 109 mg/dL (75-110); POTASSIUM 3.6 mmol/L (3.6-5.0); SODIUM 139.2 mmol/L (137-145)
[2018-09-03] MEDS: OXYCODONE-ACETAMINOPHEN 5-325 MG TABLET PO SCH ×3 (05:01→21:09)
[2018-09-03] MEDS: OXYCODONE HCL IR 5 MG TABLET PO SCH ×3 (05:01→21:10)
[2018-09-03] MEDS ORDERED: ONDANSETRON HCL INJ/PF 4 MG/2 ML SDV ONE (11:34)
[2018-09-03] MEDS ORDERED: NALOXONE HCL INJ/PF 0.4 MG/1 ML SDV ONE (11:34)
[2018-09-03] MEDS ORDERED: FLUMAZENIL INJ 0.5 MG/5 ML VIAL ONE (11:34)
[2018-09-03] MEDS ORDERED: DIPHENHYDRAMINE HCL 50 MG/ML VIAL ONE (11:34)
[2018-09-03] MEDS ORDERED: MIDAZOLAM 2 MG/2 ML INJ ONE (11:34)
[2018-09-03] MEDS ORDERED: EPINEPHRINE INJ 1 MG/10 ML DISP.SYRIN ONE (11:35)
[2018-09-03] MEDS ORDERED: GLUCAGON,HUMAN RECOMB 1 MG INJ ONE (11:35)
[2018-09-03] MEDS: FENTANYL CITRATE INJ/PF 100 MCG/2 ML AMPUL ONE ×2 (12:07→12:09)
--- NOTE | 2018-09-03 12:17 | Operative Report ---
Operative Report DATE OF SURGERY: 09/03/18 Operative Report: The risks benefits and alternatives of the procedure explained to the patient in detail and informed consent is obtained.A GIF Olympus video scope was inserted into the patient's mouth and hypopharynx, the esophagus is identified intubated and insufflated, the scope was then advanced through the esophagus stomach and duodenum, retroflexion maneuver is done ,the esophagus stomach and first and second portions of the duodenum examined. PREOPERATIVE DIAGNOSIS: Epigastric pain POSTOPERATIVE DIAGNOSIS: Gastric ulcer noted status post biopsy. Duodenitis OPERATION: EGD with biopsy SURGEON: ELSY PRETTY ANESTHESIA: Moderate Sedation - 2 mg of Versed, 50 mcg of fentanyl. Conscious sedation monitoring time 30 minutes. TISSUE REMOVED OR ALTERED: As noted above. COMPLICATIONS: None. ESTIMATED BLOOD LOSS: None. INTRAOPERATIVE FINDINGS: As noted above. PROCEDURE: Patient tolerated the procedure well. No immediate postprocedure complications are noted. Patient sent back to his room in good condition. We will wait on biopsies. Gastric ulcers likely explaining the patient's epigastric pain Will need PPI therapy on discharge Follow-up as outpatient Repeat scope in 6-8 weeks Diet as tolerated Activity as tolerated
[2018-09-03] MEDS: FLUOXETINE HCL 20 MG CAPSULE PO SCH (13:00)
[2018-09-03] MEDS: LORATADINE 10 MG TABLET PO SCH (13:00)
[2018-09-03] MEDS: LOSARTAN POTASSIUM 50 MG TABLET PO SCH (13:00)
[2018-09-03] MEDS: HYDROCHLOROTHIAZIDE 12.5 MG TABLET PO SCH (13:01)
[2018-09-03] MEDS: FINASTERIDE 5 MG TABLET PO SCH (13:01)
[2018-09-03] MEDS: ENOXAPARIN SODIUM INJ 30 MG/0.3 ML DISP.SYRIN SUBCUT SCH (13:03)
[2018-09-03] MEDS: FLUTICASONE/VILANTEROL 200-25 MCG/DOSE IH SCH (13:03)
[2018-09-03] MEDS: AMLODIPINE BESYLATE 10 MG TABLET PO SCH (18:48)
[2018-09-03] MEDS: TAMSULOSIN HCL 0.4 MG CAP.SR.24H PO SCH (18:48)
[2018-09-03] MEDS: ATORVASTATIN CALCIUM 40 MG TABLET PO SCH (18:48)
[2018-09-03] MEDS: TRAZODONE HCL 50 MG TABLET PO SCH (21:09)
[2018-09-03] MEDS: DONEPEZIL HCL 5 MG TABLET PO SCH (21:10)
--- NOTE | 2018-09-03 21:20 | PDOC DISCHARGE SUMMARY ---
General - Admit/Disc Date/PCP Admission Date/Primary Care Provider: 09/01/18 11:30 GIBSON HAMMOND MD Discharge Date: 09/03/18 - Discharge Diagnosis (1) Epigastric pain Is this a current diagnosis for this admission?: Yes (2) Gastric ulcer Is this a current diagnosis for this admission?: Yes (3) Essential (primary) hypertension Is this a current diagnosis for this admission?: Yes (4) Chronic pain Is this a current diagnosis for this admission?: Yes (5) Radiculopathy of lumbar region Is this a current diagnosis for this admission?: Yes - Additional Information Prescriptions: Esomeprazole Magnesium [Nexium] 40 mg PO BID #60 [email or web address] Home Medications: Amlodipine/Atorvastatin [Amlodipine-Atorvast 10-40 mg] 1 tab PO DAILY 10/03/14 Finasteride 5 mg PO DAILY 10/03/14 Fluoxetine HCl [Prozac] 40 mg PO DAILY 10/03/14 Fluticasone/Salmeterol [Advair 250-50 Diskus 14 Dose/Diskus] 1 inh IH DAILY 10/03/14 Loratadine [Claritin] 1 tab PO DAILY 10/03/14 Trazodone HCl [Desyrel] 200 mg PO QHS 10/03/14 Alfuzosin HCl [Alfuzosin HCl ER] 10 mg PO DAILY 09/01/18 Donepezil HCl [Aricept] 10 mg PO QHS 09/01/18 Olmesartan/Hydrochlorothiazide [Olmesartan-Hctz 40-12.5 mg Tab] 1 tab PO DAILY 09/01/18 Oxycodone HCl/Acetaminophen [Oxycodon-Acetaminophen 7.5-325] 1 tab PO Q8 09/01/18 Potassium Chloride [Klor-Con M20] 20 meq PO DAILY 09/01/18 Esomeprazole Magnesium [Nexium] 40 mg PO BID #60 [email or web address].pkt 09/03/18 History of Present Illness History of Present Illness: MARTHA CHILDS is a 78 year old male.He came to the office for evaluation of epigastric pain of few days duration the pain is not associated with activi ty, it is not provoked by activity or emotional outburst. The pain is not associated with food intake there is no diarrhea or vomiting because the potential differential diagnosis is quite long in this patient I recommended that he should be admitted for observation and evaluation of the potential differential diagnosis. The initial intent was to admit him directly from the office but there was no bed available in the hospital, on the advice of the nursing doping supervisor patient was directed to the emergency room, he was seen in the emergency room evaluated, a CAT scan of the abdomen and pelvis with IV contrast was obtained it demonstrated a 14 mm hyperdense well-circumscribed nodule in the left lower pole of the kidney the possible diagnosis includes hemorrhagic cyst etc. Hospital Course Hospital Course: Patient was admitted for evaluation for epigastric pain, he was seen by GI Dr. Brambila, he underwent EGD, was found to have gastric ulcers, it was felt that this explain the patient's symptoms. There was no GI bleed Physical Exam Vital Signs: Temp Pulse Resp BP Pulse Ox 98.0 F 74 15 137/85 H 96 09/03/18 15:43 09/03/18 15:43 09/03/18 15:43 09/03/18 15:43 09/03/18 15:43 Intake & Output 09/02/18 09/03/18 09/04/18 06:59 06:59 06:59 Intake Total 2000 2801 1900 Output Total 1600 2000 500 Balance 378 782 1308 Weight 72.1 kg 72.6 kg General appearance: PRESENT: no acute distress Head exam: PRESENT: atraumatic, normocephalic Eye exam: PRESENT: PERRLA Respiratory exam: PRESENT: clear to auscultation abhi Cardiovascular exam: PRESENT: RRR, +S1, +S2 Vascular exam: PRESENT: normal capillary refill GI/Abdominal exam: PRESENT: normal bowel sounds, soft Rectal exam: PRESENT: deferred Neurological exam: PRESENT: alert, CN II-XII grossly intact Psychiatric exam: PRESENT: appropriate affect, normal mood Skin exam: PRESENT: dry, intact, warm Results Laboratory Results: 09/01/18 11:40 09/03/18 03:43 09/03/18 03:43 Sodium 139.2 Potassium 3.6 Chloride 103 Carbon Dioxide 31 H Anion Gap 5 BUN 23 H Creatinine 1.20 Est GFR ( Amer) > 60 Est GFR (Non-Af Amer) 58 L Glucose 109 Calcium 9.0 09/01/18 09/01/18 09/01/18 11:40 17:45 23:31 Troponin I < 0.012 < 0.012 < 0.012 09/02/18 05:38 Troponin I < 0.012 Impressions: Abdomen/Pelvis CT 09/01/18 11:20 IMPRESSION: 14 mm left lower pole hemorrhagic cyst versus small solid nodule. Dedicated bilateral renal ultrasound recommended for followup. Descending and sigmoid colon diverticuli without CT signs of acute diverticulitis. Renal Ultrasound 09/02/18 00:00 IMPRESSION: 1. Small focal area of decreased echogenicity arising from the inferior pole of the left kidney with a maximum dimension of 2.7 cm. This does not clearly represent a simple cyst. Consider follow-up imaging in 3-6 months to confirm stability or MR imaging with and without contrast for further characterization. 2. Otherwise, unremarkable retroperitoneal ultrasound. Qualifiers - * PATIENT BEING DISCHARGED WITH ANY OF THE FOLLOWING DIAGNOSIS: No
[2018-09-04 05:00] LABS: ANION GAP 5 (5-19); BLOOD UREA NITROGEN 15 mg/dL (7-20); CALCIUM 8.9 mg/dL (8.4-10.2); CARBON DIOXIDE 28 mmol/L (22-30); CHLORIDE 107 mmol/L (98-107); GLUCOSE 95 mg/dL (75-110); POTASSIUM 3.2 mmol/L (3.6-5.0); SODIUM 139.5 mmol/L (137-145)
[2018-09-04] MEDS: OXYCODONE-ACETAMINOPHEN 5-325 MG TABLET PO SCH (05:27)
[2018-09-04] MEDS: OXYCODONE HCL IR 5 MG TABLET PO SCH (05:27)
[2018-09-04 08:49] VITALS: BP 135/71
[2018-09-04] MEDS ORDERED: POTASSIUM CHLORIDE 10 MEQ CAPSULE.ER PO ONE (09:00)
[2018-09-04] MEDS: FLUOXETINE HCL 20 MG CAPSULE PO SCH (09:16)
[2018-09-04] MEDS: FINASTERIDE 5 MG TABLET PO SCH (09:17)
[2018-09-04] MEDS: HYDROCHLOROTHIAZIDE 12.5 MG TABLET PO SCH (09:17)
[2018-09-04] MEDS: LOSARTAN POTASSIUM 50 MG TABLET PO SCH (09:17)
[2018-09-04] MEDS: LORATADINE 10 MG TABLET PO SCH (09:17)
[2018-09-04] MEDS: ENOXAPARIN SODIUM INJ 30 MG/0.3 ML DISP.SYRIN SUBCUT SCH (09:20)
[2018-09-04] MEDS: FLUTICASONE/VILANTEROL 200-25 MCG/DOSE IH SCH (09:22)
== END 2018-09-04 11:18 | disposition home or self-care (01) ==
LOC: ER 10:58 → EH 11:30 → 5 16:12
PROVIDERS: ADMIT Internal Medicine; ATTEND Internal Medicine
PROC: 0DB68ZX Excision of Stomach, Via Natural or Artificial Opening Endoscopic, Diagnostic (ICD-10-PCS; principal; 2018-09-03 12:00)
DX: R10.13 Epigastric pain (principal); K25.3 Acute gastric ulcer without hemorrhage or perforation; K25.7 Chronic gastric ulcer without hemorrhage or perforation; K29.80 Duodenitis without bleeding; I10 Essential (primary) hypertension; G89.29 Other chronic pain; M54.16 Radiculopathy, lumbar region; N28.89 Other specified disorders of kidney and ureter; K57.30 Diverticulosis of large intestine without perforation or abscess without bleeding; R68.81 Early satiety; J44.9 Chronic obstructive pulmonary disease, unspecified; Z79.899 Other long term (current) drug therapy; Z87.891 Personal history of nicotine dependence
CPT/HCPCS: 93005; 43239; 36415 ×4; 84439; 82150; 83690; 83735; 84443; 85025; 80076; 80048 ×4; 81001; 84484 ×2; 88342 ×2; 88305 ×2; 76770; 74177; 93010; G0378 ×4; G0379; J2250; A9270 ×41; J3480 ×3; J3010; J1650 ×2; J3490; J0171; J1200; J1610; J2310; J2405

== ENCOUNTER 2018-11-27 12:47 | Emergency (ER) | payer MEDICARE, OTHER ==
[2018-11-27] MEDS ORDERED: ACETAMINOPHEN 325 MG TABLET PO ONE (13:16)
[2018-11-27] MEDS ORDERED: NORMAL SALINE 1000 ML 1,000 ML IV ONE (13:16)
--- NOTE | 2018-11-27 13:17 | ER Document Report ---
ED Medical Screen (RME) - General Chief Complaint: Flu Symptoms Stated Complaint: FLU LIKE SYMPTOMS Time Seen by Provider: 11/27/18 13:10 Primary Care Provider: GIBSON HAMMOND MD [Primary Care Provider] - Follow up as needed Mode of Arrival: Ambulatory Information source: Patient Notes: Patient is a 78-year-old male presented to the emergency department chief c omplaint of generalized malaise, fever and nausea that started this morning. Patient denies any vomiting or diarrhea, denies any cough or chest pain. Patient reports he has had similar symptoms in the past and that time he had a pneumonia. Exam: Lung sounds clear and equal bilaterally. Patient shivering. I have greeted and performed a rapid initial assessment of this patient. A comprehensive ED assessment and evaluation of the patient, analysis of test results and completion of the medical decision making process will be conducted by additional ED providers. I have specifically instructed the patient or family members with the patient to immediately return to any nursing staff should anything change in the patient's condition or with their chief complaint. This medical record was dictated with voice recognizing software. There may be grammatical, syntax errors that are unintended. TRAVEL OUTSIDE OF THE [place] IN LAST 30 DAYS: No - Related Data Allergies/Adverse Reactions: cat dander Allergy (Verified 11/27/18 12:48) dog dander Allergy (Verified 11/27/18 12:48) Past Medical History - Social History Frequency of alcohol use: None Drug Abuse: None - Past Medical History Cardiac Medical History: Reports: Hx Hypertension Denies: Hx Coronary Artery Disease, Hx Heart Attack Pulmonary Medical History: Reports: Hx Asthma, Hx Bronchitis, Hx COPD, Hx Pn eum[place] Neurological Medical History: Denies: Hx Cerebrovascular Accident, Hx Seizures Renal/ Medical History: Denies: Hx Peritoneal Dialysis GI Medical History: Reports: Hx Gastroesophageal Reflux Disease Musculoskeltal Medical History: Reports Hx Arthritis Psychiatric Medical History: Reports: Hx Depression Past Surgical History: Reports: Hx Nose Surgery, Hx Orthopedic Surgery - back/neck, Hx Tonsillectomy - Immunizations Immunizations up to date: Yes Hx Diphtheria, Pertussis, Tetanus Vaccination: No Physical Exam - Vital signs Vitals: Temp Pulse Resp BP Pulse Ox 99.9 F 87 18 147/94 H 94 11/27/18 12:48 11/27/18 12:48 11/27/18 12:48 11/27/18 12:48 11/27/18 12:48 Course - Vital Signs Vital signs: Temp Pulse Resp BP Pulse Ox 99.9 F 87 18 147/94 H 94 11/27/18 12:48 11/27/18 12:48 11/27/18 12:48 11/27/18 12:48 11/27/18 12:48 Doctor's Discharge - Discharge Referrals: GIBSON HAMMOND MD [Primary Care Provider] - Follow up as needed
--- NOTE | 2018-11-27 14:05 | RADIOLOGY REPORT (SQ) ---
EXAM DESCRIPTION: CHEST 2 VIEWS COMPLETED DATE/TIME: 11/27/2018 1:52 pm REASON FOR STUDY: eval for pneumonia COMPARISON: 05/10/2018 EXAM PARAMETERS: NUMBER OF VIEWS: two views TECHNIQUE: Digital Frontal and Lateral radiographic views of the chest acquired. RADIATION DOSE: NA LIMITATIONS: none FINDINGS: LUNGS AND PLEURA: No opacities, masses or pneumothorax. No pleural effusion. MEDIASTINUM AND HILAR STRUCTURES: No masses or contour abnormalities. HEART AND VASCULAR STRUCTURES: Heart normal size. No evidence for failure. BONES: No acute findings. HARDWARE: None in the chest. OTHER: No other significant finding. IMPRESSION: NO ACUTE RADIOGRAPHIC FINDING IN THE CHEST. TECHNICAL DOCUMENTATION: JOB ID: [id number] [email or web address]- All Rights Reserved Reading location - IP/workstation name: [email or web address]
[2018-11-27 15:07] LABS: HEMATOCRIT 37.2 % (37.9-51.0); HEMOGLOBIN 12.9 g/dL (13.5-17.0); MEAN CORPUSCULAR HEMOGLOBIN 29.4 pg (27.0-33.4); MEAN CORPUSCULAR HGB CONC 34.7 g/dL (32.0-36.0); MEAN CORPUSCULAR VOLUME 85 fl (80-97); PLATELET COUNT 197 10^3/uL (150-450); RED BLOOD COUNT 4.38 10^6/uL (4.35-5.55); WHITE BLOOD COUNT 13.8 10^3/uL (4.0-10.5)
[2018-11-27 15:28] LABS: ALANINE AMINOTRANSFERASE 27 U/L (21-72); ALBUMIN 4.9 g/dL (3.5-5.0); ALKALINE PHOSPHATASE 62 U/L (38-126); ANION GAP 11 (5-19); ASPARTATE AMINO TRANSFERASE 19 U/L (17-59); BILIRUBIN,DIRECT 0.3 mg/dL (0.0-0.4); BILIRUBIN,TOTAL 0.7 mg/dL (0.2-1.3); BLOOD UREA NITROGEN 23 mg/dL (7-20); CALCIUM 9.8 mg/dL (8.4-10.2); CARBON DIOXIDE 32 mmol/L (22-30); CHLORIDE 98 mmol/L (98-107); GLUCOSE 121 mg/dL (75-110); SODIUM 140.9 mmol/L (137-145); TOTAL PROTEIN 7.4 g/dL (6.3-8.2)
[2018-11-27 15:42] LABS: ABSOLUTE MONOCYTES # (MANUAL) 0.6 10^3/uL (0.1-1.4); BASOPHILS % (MANUAL) 1 % (0-2); EOSINOPHILS % (MANUAL) 0 % (0-6); LYMPHOCYTES % (MANUAL) 7 % (13-45); MONOCYTES % (MANUAL) 4 % (3-13); SEGMENTED NEUTROPHILS % (MAN) 88 % (42-78); TOTAL CELLS COUNTED 100
[2018-11-27 15:43] LABS: OVALOCYTES 1+; PLATELET COMMENT ADEQUATE; POIKILOCYTOSIS 1+
--- NOTE | 2018-11-27 15:44 | ER Document Report ---
ED Flu Like - General Chief Complaint: Flu Symptoms Stated Complaint: FLU LIKE SYMPTOMS Time Seen by Provider: 11/27/18 13:10 Primary Care Provider: GIBSON HAMMOND MD [Primary Care Provider] - Follow up as needed Mode of Arrival: Ambulatory Notes: 78-year-old male presented to the emergency department chief complaint of generalized malaise, fever and nausea that started this morning. Patient denies any vomiting or diarrhea, denies chest pain. Patient reports he has had similar symptoms in the past and that time he had a pneumonia. The patient has had a cough however is been nonproductive. He is also has been hiccuping a lot more on and off feels achy all over fever chills. Feels nauseous and has a lot of fatigue. Denies black bloody or tarry stools. Denies falls trauma or head injury. Denies night sweats hemoptysis or gland swelling. TRAVEL OUTSIDE OF THE [place] IN LAST 30 DAYS: No - Related Data Allergies/Adverse Reactions: cat dander Allergy (Verified 11/27/18 12:48) dog dander Allergy (Verified 11/27/18 12:48) Past Medical History - General Information source: Patient - Social History Smoking Status: Never Smoker Frequency of alcohol use: None Drug Abuse: None Family History: Reviewed & Not Pertinent Patient has suicidal ideation: No Patient has homicidal ideation: No - Past Medical History Cardiac Medical History: Reports: Hx Hypertension Denies: Hx Coronary Artery Disease, Hx Heart Attack Pulmonary Medical History: Reports: Hx Asthma, Hx Bronchitis, Hx COPD, Hx Pneumonia Neurological Medical History: Denies: Hx Cerebrovascular Accident, Hx Seizures Renal/ Medical History: Denies: Hx Peritoneal Dialysis GI Medical History: Reports: Hx Gastroesophageal Reflux Disease Musculoskeletal Medical History: Reports Hx Arthritis Psychiatric Medical History: Reports: Hx Depression Past Surgical History: Reports: Hx Nose Surgery, Hx Orthopedic Surgery - back/neck, Hx Tonsillectomy - Immunizations Immunizations up to date: Yes Hx Diphtheria, Pertussis, Tetanus Vaccination: No Hx Pneumococcal Vaccination: 06/08/04 Review of Systems - Review of Systems Constitutional: Chills, Fever, Malaise, Weakness EENT: Nose congestion. denies: Throat pain Cardiovascular: denies: Chest pain, Orthopnea, Dyspnea, Edema Respiratory: Cough. denies: Hurts to breathe, Hemoptysis, Short of breath, Wheezing Gastrointestinal: Nausea. denies: Abdominal pain, Diarrhea, Vomiting Genitourinary: denies: Dysuria, Hematuria Neurological/Psychological: denies: Headaches -: Yes All other systems reviewed and negative Physical Exam - Vital signs Vitals: Temp Pulse Resp BP Pulse Ox 99.9 F 87 18 147/94 H 94 11/27/18 12:48 11/27/18 12:48 11/27/18 12:48 11/27/18 12:48 11/27/18 12:48 - Notes Notes: GENERAL_APPEARANCE: well_nourished, alert, cooperative, appears uncomfortable VITALS: reviewed, see vital signs table. HEAD: no_swelling\tenderness on the head. EYES: PERRL, EOMI, conjunctiva_clear. NOSE: Clear_nasal_discharge. Turbinate inflammation MOUTH: Slight decreased moisture. THROAT: no_tonsilar_inflammation, no_airway_obstruction. no_lymphadenopathy NECK: supple, no_neck_tenderness, (-)thyromegaly. BACK: no_back_tenderness. CHEST_WALL: no_chest_tenderness. LUNGS: Scant_wheezing, no_rales, no_rhonchi, (-)accessory muscle use, good air exchange bilateral. HEART: normal_rate, normal_rhythm, normal_S1, normal_S2, (-)S3, (-)S4, no_murmur, no_rub. ABDOMEN: normal_BS, soft, no_abd_tenderness, (-)guarding, (-)rebound, no_organomegaly, no_abd_masses. EXTREMITIES: good pulses in all_extremities, no_swelling\tenderness in the extremities, no_edema. SKIN: warm, dry, good_color, no_rash. MENTAL_STATUS: speech_clear, oriented_X_3, normal_affect, responds_appropriately to questions. NEURO: Neg Motor or Sensory Deficits on exam, CN 2-12 intact, DTR 2+ symmetric x 4, No cerbellar signs Course - Re-evaluation Re-evalutation: 11/27/18 15:43 78-year-old male presents emerged from with flulike illness. Complains of fever chills muscle aches cough. Feels a lot of malaise and fatigue. He does have a low-grade fever here no tachycardia no tachypnea. Currently no sirs criteria at this time however we will continue to monitor we will give him IV fluids check lactic acid and blood work. Swab him for the flu. 11/27/18 17:06 He is feeling better. There is no signs of pneumonia. No urinary tract infection. Patient's lab work is very reassuring. Repeat examination of the patient shows no concerning findings. Patient likely has a virus. Spoke with him about supportive care. The patient will be discharged back to home. Follow-up with his primary care if not improving in 24-4 8 hours may return to the ER to be reevaluated. Other than a mild leukocytosis there is no tachycardia no tachypnea or fever or other sirs criteria. - Vital Signs Vital signs: Temp Pulse Resp BP Pulse Ox 99.9 F 87 18 147/94 H 94 11/27/18 12:48 11/27/18 12:48 11/27/18 12:48 11/27/18 12:48 11/27/18 12:48 - Laboratory Result Diagrams: 11/27/18 14:45 11/27/18 14:45 Laboratory results interpreted by me: 11/27/18 11/27/18 14:45 14:45 WBC 13.8 H Hgb 12.9 L Hct 37.2 L Seg Neuts % (Manual) 88 H Lymphocytes % (Manual) 7 L Abs Neuts (Manual) 12.1 H Potassium 3.0 L* Carbon Dioxide 32 H BUN 23 H Glucose 121 H - Diagnostic Test Radiology reviewed: Reports reviewed Radiology results interpreted by me: 11/27/18 17:06 Chest X-Ray 11/27/18 13:15 IMPRESSION: NO ACUTE RADIOGRAPHIC FINDING IN THE CHEST. Discharge - Discharge Clinical Impression: Viral illness Disposition: HOME, SELF-CARE Instructions: Viral Syndrome ([facility]) Additional Instructions: Tylenol for fever every 4 hours. Plenty of fluids. Referrals: GIBSON HAMMOND MD [Primary Care Provider] - Follow up as needed
[2018-11-27 16:40] LABS: A TYPE INFLUENZA AG NEGATIVE (NEGATIVE); B INFLUENZA AG NEGATIVE (NEGATIVE)
[2018-11-27 16:54] LABS: APPEARANCE,URINE CLEAR; BILIRUBIN,URINE NEGATIVE (NEGATIVE); COLOR,URINE YELLOW; GLUCOSE, URINE NEGATIVE (NEGATIVE); KETONES,URINE NEGATIVE (NEGATIVE); LEUKOCYTE ESTERASE,URINE NEGATIVE (NEGATIVE); NITRITE,URINE NEGATIVE (NEGATIVE); PROTEIN,URINE NEGATIVE (NEGATIVE); UROBILINOGEN,URINE NEGATIVE mg/dL (<2.0)
[2018-11-27] MEDS ORDERED: POTASSIUM CHLORIDE 20 MEQ PACKET PO ONE (17:03)
[2018-11-27 17:57] VITALS: BP 150/86
== END 2018-11-27 18:23 | disposition home or self-care (01) ==
LOC: ER 12:47
DX: B34.9 Viral infection, unspecified (principal); R53.81 Other malaise; R50.9 Fever, unspecified; R11.0 Nausea; R05 Cough; I10 Essential (primary) hypertension
CPT/HCPCS: 99283; 96360; 96361; 36415; 87040; 85025; 80053; 81001; 83605; 87804; 71046; A9270; J7030; J3490

== ENCOUNTER 2019-01-26 12:56 | Emergency (ER) | payer MEDICARE, OTHER ==
--- NOTE | 2019-01-26 14:54 | RADIOLOGY REPORT (SQ) ---
EXAM DESCRIPTION: CHEST SINGLE VIEW COMPLETED DATE/TIME: 01/26/2019 2:42 pm REASON FOR STUDY: SOB, cough, congestion COMPARISON: EXAM PARAMETERS: NUMBER OF VIEWS: One view. TECHNIQUE: Single frontal radiographic view of the chest acquired. RADIATION DOSE: NA LIMITATIONS: None. FINDINGS: LUNGS AND PLEURA: No opacities, masses or pneumothorax. No pleural effusion. MEDIASTINUM AND HILAR STRUCTURES: No masses. Contour normal. HEART AND VASCULAR STRUCTURES: Heart normal in size. Aortic atherosclerosis. BONES: No acute findings. HARDWARE: None in the chest. OTHER: No other significant finding. IMPRESSION: No focal airspace disease or other evidence of acute cardiopulmonary process. TECHNICAL DOCUMENTATION: JOB ID: [id number] [employer]- All Rights Reserved Reading location - IP/workstation name: [email or web address]
--- NOTE | 2019-01-26 15:58 | ER Document Report ---
HPI - HPI Patient complains to provider of: cough, right sided chest pain Time Seen by Provider: 01/26/19 15:34 Onset/Duration: Gradual Quality of pain: Achy Severity: Mild Pain Level: 2 Context: 78 yr old male pt, with the listed pmh, here for cough, congestion, and wheezing x 7 days. he has been using his albuterol inhaler at home with little relief. no recent abx or steroids. no hx of diabetes. hx of copd. not on home O2. no sick contacts. no trouble breathing, swallowing or handling secretions. otc meds not helping much. he has some right sided chest wall pain with coughing only. no pain on deep breathing. hasn't sought help until now. Pt denies any prior personal cardiac history. no syncope. no palpitations. no hx of mi, cva, tia, or cad. no ripping or tearing sensation. denies any blood thinners. No prior history of blood clots. No recent long distance travel, recent surgery, exogenous hormone use, hemoptysis, history of cancer, or calf pain/swelling. No prior history of arrhythmias. No other associated sx. Associated Symptoms: Productive cough Exacerbated by: Coughing Relieved by: Remaining still Similar symptoms previously: Yes Recently seen / treated by doctor: No - ROS Systems Reviewed and Negative: Yes All other systems reviewed and negative - to include 10 systems, unless mentioned in the hpi - REPRODUCTIVE Reproductive: DENIES: : - DERM Skin Color: Normal Past Medical History - General Information source: Patient - Social History Smoking Status: Former Smoker Frequency of alcohol use: None Drug Abuse: None Family History: Reviewed & Not Pertinent Patient has suicidal ideation: No Patient has homicidal ideation: No - Past Medical History Cardiac Medical History: Reports: Hx Hypertension Denies: Hx Coronary Artery Disease, Hx Heart Attack Pulmonary Medical History: Reports: Hx Asthma, Hx Bronchitis, Hx COPD, Hx Pneumonia Neurological Medical History: Denies: Hx Cerebrovascular Accident, Hx Seizures Endocrine Medical History: Reports: None Renal/ Medical History: Denies: Hx Peritoneal Dialysis GI Medical History: Reports: Hx Gastroesophageal Reflux Disease Musculoskeletal Medical History: Reports Hx Arthritis Psychiatric Medical History: Reports: Hx Depression Past Surgical History: Reports: Hx Nose Surgery, Hx Orthopedic Surgery - back/neck, Hx Tonsillectomy - Immunizations Immunizations up to date: Yes Hx Diphtheria, Pertussis, Tetanus Vaccination: No Hx Pneumococcal Vaccination: 06/08/04 Vertical Provider Document - CONSTITUTIONAL Agree With Documented VS: Yes Exam Limitations: No Limitations General Appearance: No Apparent Distress Notes: >>>> PHYSICAL_EXAM: GENERAL_APPEARANCE: well_nourished, alert, cooperative, no_acute_distress, no_obvious_discomfort. pleasant, elderly male, smiling, speaking in full sentences, in no sign of pain or resp distress, coughs occasionally not intractable, no one is with him. VITALS: reviewed, see vital signs table. HEAD: no_swelling\tenderness on the head. normocephalic. atraumatic. no carter signs. no raccoons eyes. EYES: PERRL, EOMI, conjunctiva_clear. NOSE: no_nasal_discharge. MOUTH: (-)decreased moisture. THROAT: no_tonsilar_inflammation/exudate/hypertrophy/thrush, no_airway_o bstruction. no_lymphadenopathy NECK: supple, no_neck_tenderness, full rom. full strength. no meningeal signs. BACK: no_back_tenderness. CHEST_WALL: chest_tenderness to palpation over the right superior anterior ribs that reproduces pts pain exactly. no overlying skin changes. no crepitation. no flail chest. no rash. LUNGS: mild diffuse exp wheezes (-)accessory muscle use, good air exchange bilateral. HEART: normal_rate, normal_rhythm, ABDOMEN: normal_BS, soft, no_abd_tenderness, (-)guarding, (-)rebound, no distension or peritoneal signs. no cva ttp EXTREMITIES: strength 5/5 in all_extremities, good pulses in all_extremities, no_swelling\tenderness in the extremities, no_edema. full rom. normal gait. good pulses. brisk cap refill. good hand fabric pattern grader. neg moira sign NEURO: motor and sensation intact, cranial nerves 2-12 intact, cerebellar fxn intact SKIN: warm, dry, good_color, no_rash. MENTAL_STATUS: speech_clear, oriented_X_3, normal_affect, responds_appropriately to questions. - INFECTION CONTROL TRAVEL OUTSIDE OF THE [place] IN LAST 30 DAYS: No Course - Re-evaluation Re-evalutation: 01/26/19 18:11 pt here for likely copd exacerbation x 1 wk. labs unremarkable other than a mild anemia and mild renal insufficiency. cxr neg per rad and reviewed by myself. ekg unremarkable per dr pedraza. informed pt of this and to f/u closely with his pcp for recheck and further workup of this. he responded well to a duoneb, prednisone, and doxy here. will dc with doxy, a short course of prednisone, and tessalon perles. he still has his albuterol inhaler at home with plenty of puffs left in it he can cont to use. advised to f/u with pcp in 1-2 days. return for any worsening symptoms. vss. well appearing. satting well on ra. neurononfocal. pt understands and agrees to plan. On reexam, pt improved with tx listed. remained stable. nontoxic. well appearing. tolerating po. requesting to go home. lung sounds improved on recheck. vss. normal o2 sats on ra. he is wells criteria low risk for PE. heart score is a 2. case discussed with ER Attending, Dr. pedraza, who directed and agrees with plan of care and advised no further workup indicated at this time and pt is stable for dc home with close f/u with pcp/specialist. Documentation achieved through voice recording which my lead to some occasional accidental typographical errors. Extensive efforts have been made to proof read documentation to make sure these are the least as possible. Category Date Time Status EKG Documentation STAT Care 01/26/19 15:30 Completed CHEST SINGLE VIEW [RAD] Stat Exams 01/26/19 Completed CBC WITH DIFF [HEME] Stat Lab 01/26/19 16:00 Completed COMPREHENSIVE METABOLIC PANEL [CHEM] Stat Lab 01/26/19 16:00 Completed TROPONIN I [CHEM] Stat Lab 01/26/19 16:00 Completed Doxycycline Hyclate [Vibramycin 100 mg Tablet] Med 01/26/19 18:16 Once 100 mg PO NOW ONE Ipratropium/Albuterol Sulfate [Duoneb 3 ml Ampul] Med 01/26/19 16:43 Discontinued 3 ml NEB NOW ONE Prednisone [Deltasone 20 mg Tablet] Med 01/26/19 18:16 Once 40 mg PO NOW ONE EKG ER ONLY [ER] Stat Oth 01/26/19 Completed Nebulizer Therapy Routine [RESPCARE] NOW Ther 01/26/19 16:43 Active - Vital Signs Vital signs: Temp Pulse Resp BP Pulse Ox 97.8 F 69 18 122/75 95 01/26/19 13:17 01/26/19 13:17 01/26/19 15:23 01/26/19 15:23 01/26/19 15:23 01/26/19 18:17 Temp Pulse Resp BP Pulse Ox 01/26/19 17:41 98.1 F 22 H 125/75 95 01/26/19 17:40 12 96 01/26/19 17:01 22 H 93 01/26/19 17:00 18 92 01/26/19 16:01 20 125/78 97 01/26/19 16:00 21 H 96 01/26/19 15:23 18 122/75 95 01/26/19 15:22 22 H 94 01/26/19 15:01 19 93 01/26/19 15:00 16 93 01/26/19 14:14 13 97 01/26/19 13:17 97.8 F 69 18 112/65 96 - Laboratory Result Diagrams: 01/26/19 16:00 01/26/19 16:00 Laboratory results interpreted by me: 01/26/19 18:18 Labs- Entire Visit 01/26/19 01/26/19 01/26/19 16:00 16:00 16:00 WBC 4.0 RBC 3.62 L Hgb 10.6 L Hct 31.0 L MCV 86 MCH 29.2 MCHC 34.1 RDW 13.8 Plt Count 182 Lymph % (Auto) 21.5 Stephenson % (Auto) 10.2 Eos % (Auto) 5.0 Baso % (Auto) 0.6 Absolute Neuts (auto) 2.5 Absolute Lymphs (auto) 0.9 Absolute Monos (auto) 0.4 Absolute Eos (auto) 0.2 Absolute Basos (auto) 0.0 Seg Neutrophils % 62.7 Sodium 136.3 L Potassium 4.2 Chloride 100 Carbon Dioxide 27 Anion Gap 9 BUN 27 H Creatinine 1.55 H Est GFR ( Amer) 53 L Est GFR (MDRD) Non-Af 43 L Glucose 91 Calcium 8.7 Total Bilirubin 0.4 Direct Bilirubin 0.3 Neonat Total Bilirubin Not Reportable Neonat Direct Bilirubin Not Reportable Neonat Indirect Bili Not Reportable AST 28 ALT 16 Alkaline Phosphatase 53 Troponin I < 0.012 Total Protein 6.5 Albumin 4.1 - Diagnostic Test Radiology reviewed: Image reviewed, Reports reviewed Radiology results interpreted by me: 01/26/19 18:18 Chest X-Ray 01/26/19 00:00 IMPRESSION: No focal airspace disease or other evidence of acute cardiopulmonary process. 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 Return for any worsening symptoms. tylenol as needed for any pain or fever if not allergic. take the medication as prescri bed. Continue to use your inhaler as prescribed. Follow-up with your primary care doctor in regards to your kidney function and your anemia. Prescriptions: Benzonatate [Tessalon Perle 100 mg Capsule] 100 mg PO Q8HP PRN #30 cap PRN Reason: Prednisone [Deltasone 10 mg Tablet] 40 mg PO DAILY 5 Days #20 tablet Doxycycline Hyclate 100 mg PO BID #14 capsule Referrals: GIBSON HAMMOND MD [Primary Care Provider] - Follow up as needed
[2019-01-26 16:13] LABS: ABSOLUTE EOSINOPHILS # (AUTO) 0.2 10^3/uL (0.0-0.6); ABSOLUTE LYMPHOCYTES (AUTO) 0.9 10^3/uL (0.5-4.7); ABSOLUTE MONOCYTES (AUTO) 0.4 10^3/uL (0.1-1.4); ABSOLUTE NEUT (AUTO) 2.5 10^3/uL (1.7-8.2); BASOPHILS % (AUTO) 0.6 % (0-2); HEMOGLOBIN 10.6 g/dL (13.5-17.0); LYMPHOCYTES % (AUTO) 21.5 % (13-45); MEAN CORPUSCULAR HEMOGLOBIN 29.2 pg (27.0-33.4); MEAN CORPUSCULAR HGB CONC 34.1 g/dL (32.0-36.0); MEAN CORPUSCULAR VOLUME 86 fl (80-97); MONOCYTES % (AUTO) 10.2 % (3-13); PLATELET COUNT 182 10^3/uL (150-450); RED BLOOD COUNT 3.62 10^6/uL (4.35-5.55); RED CELL DISTRIBUTION WIDTH 13.8 % (11.5-14.0); SEGMENTED NEUTROPHILS % (AUTO) 62.7 % (42-78); TOTAL CELLS COUNTED % (AUTO) 100 %
[2019-01-26 16:31] LABS: ALBUMIN 4.1 g/dL (3.5-5.0); ALKALINE PHOSPHATASE 53 U/L (38-126); ANION GAP 9 (5-19); ASPARTATE AMINO TRANSFERASE 28 U/L (17-59); BILIRUBIN,DIRECT 0.3 mg/dL (0.0-0.4); BILIRUBIN,TOTAL 0.4 mg/dL (0.2-1.3); BLOOD UREA NITROGEN 27 mg/dL (7-20); CALCIUM 8.7 mg/dL (8.4-10.2); CARBON DIOXIDE 27 mmol/L (22-30); CHLORIDE 100 mmol/L (98-107); GLUCOSE 91 mg/dL (75-110); POTASSIUM 4.2 mmol/L (3.6-5.0); TOTAL PROTEIN 6.5 g/dL (6.3-8.2)
[2019-01-26] MEDS ORDERED: IPRATROPIUM/ALBUTEROL 0.5-2.5 MG/3 ML AMPUL NEB ONE (16:43)
--- NOTE | 2019-01-26 17:39 | EKG REPORT ---
SEVERITY:- ABNORMAL ECG - SINUS RHYTHM FIRST DEGREE AV BLOCK BORDERLINE LEFT AXIS DEVIATION : Confirmed by: Christel Young MD 26-Jan-2019 17:38:48
[2019-01-26 17:56] VITALS: BP 125/75
[2019-01-26] MEDS ORDERED: PREDNISONE 20 MG TABLET PO ONE (18:16)
[2019-01-26] MEDS ORDERED: DOXYCYCLINE HYCLATE 100 MG TABLET PO ONE (18:16)
== END 2019-01-26 18:41 | disposition home or self-care (01) ==
LOC: ER 12:56
DX: J44.1 Chronic obstructive pulmonary disease with (acute) exacerbation (principal); Z79.899 Other long term (current) drug therapy; N28.9 Disorder of kidney and ureter, unspecified; D64.9 Anemia, unspecified; R05 Cough; R07.89 Other chest pain; I10 Essential (primary) hypertension; I44.0 Atrioventricular block, first degree; Z87.891 Personal history of nicotine dependence; Z87.01 Personal history of pneumonia (recurrent)
CPT/HCPCS: 93005; 36415; 85025; 80053; 84484; 71045; 93010; A9270; 94640; 99285; J7620

== ENCOUNTER 2019-07-07 16:15 | Emergency (ER) | payer OTHER, MEDICARE ==
--- NOTE | 2019-07-07 17:25 | ER Document Report ---
ED Medical Screen (RME) - General Chief Complaint: Back Pain Stated Complaint: BACK PAIN Time Seen by Provider: 07/07/19 17:16 Primary Care Provider: GIBSON HAMMOND MD [Primary Care Provider] - Follow up as needed TRAVEL OUTSIDE OF THE [place] IN LAST 30 DAYS: No - HPI Notes: 07/07/19 17:23 79-year-old male to the emergency department with complaints of pain from mid occipital scalp all the way down to his feet that has been getting worse for the past several days. He states the pain started earlier this week and now it is so painful that he feels like he cannot move his back or his body. He states he is having difficulty walking because of the pain. He admits to chills but denies any fevers. He denies any cough, nausea, vomiting, chest pain, urinary symptoms. He states that his primary care physician, Dr. Hammond, has him on oxycodone for chronic pain for his back. He states that this medicine has not been controlling his pain since this started. He denies any falls. I performed a brief medical screening exam on patient determined that he will need further evaluation and management by me inside provider. I placed initial orders to help expedite his care. - Related Data Allergies/Adverse Reactions: cat dander Allergy (Verified 07/07/19 17:16) dog dander Allergy (Verified 07/07/19 17:16) Past Medical History - Past Medical History Cardiac Medical History: Reports: Hx Hypertension Denies: Hx Coronary Artery Disease, Hx Heart Attack Pulmonary Medical History: Reports: Hx Asthma, Hx Bronchitis, Hx COPD, Hx Pneumonia Neurological Medical History: Denies: Hx Cerebrovascular Accident, Hx Seizures Renal/ Medical History: Denies: Hx Peritoneal Dialysis GI Medical History: Reports: Hx Gastroesophageal Reflux Disease Musculoskeltal Medical History: Reports Hx Arthritis Psychiatric Medical History: Reports: Hx Depression Past Surgical History: Reports: Hx Nose Surgery, Hx Orthopedic Surgery - back/neck, Hx Tonsillectomy - Immunizations Immunizations up to date: Yes Hx Diphtheria, Pertussis, Tetanus Vaccination: No Physical Exam - Vital signs Vitals: Temp Pulse Resp BP Pulse Ox 99.3 F 85 16 152/89 H 95 07/07/19 16:34 07/07/19 16:34 07/07/19 16:34 07/07/19 16:34 07/07/19 16:34 Course - Vital Signs Vital signs: Temp Pulse Resp BP Pulse Ox 99.3 F 85 16 152/89 H 95 07/07/19 16:34 07/07/19 16:34 07/07/19 16:34 07/07/19 16:34 07/07/19 16:34 Doctor's Discharge - Discharge Referrals: GIBSON HAMMOND MD [Primary Care Provider] - Follow up as needed
[2019-07-07] MEDS ORDERED: MORPHINE SULFATE 10 MG/ML INJ IM ONE (19:27)
[2019-07-07 19:30] LABS: APPEARANCE,URINE SLIGHTLY-CLOUDY; BILIRUBIN,URINE NEGATIVE (NEGATIVE); COLOR,URINE YELLOW; GLUCOSE, URINE NEGATIVE (NEGATIVE); KETONES,URINE NEGATIVE (NEGATIVE); LEUKOCYTE ESTERASE,URINE NEGATIVE (NEGATIVE); NITRITE,URINE NEGATIVE (NEGATIVE); PROTEIN,URINE NEGATIVE (NEGATIVE); URINE SPECIFIC GRAVITY 1.017; UROBILINOGEN,URINE NEGATIVE mg/dL (<2.0)
--- NOTE | 2019-07-07 20:58 | RADIOLOGY REPORT (SQ) ---
EXAM DESCRIPTION: CT cervical spine without contrast CLINICAL HISTORY: 79 years Male, headache, neck pain COMPARISON: None. TECHNIQUE: Axial images of the cervical spine were performed, without the use of intravenous contrast, with sagittal and coronal reformatted images This exam was performed according to our departmental dose-optimization program which includes use of Automated Exposure Control, adjustment of the mA and/or kV according to patient size and/or use of iterative reconstruction technique. FINDINGS: No fracture or dislocation. No evidence of prevertebral swelling. There are severe degenerative changes throughout the cervical spine. There is moderate to severe spinal stenosis at multiple cervical levels. There is also considerable bilateral neural foraminal stenosis at multiple cervical levels. IMPRESSION: Severe degenerative changes with spinal stenosis and neural foraminal stenosis.
[2019-07-07 21:00] LABS: ALBUMIN 4.6 g/dL (3.5-5.0); ALKALINE PHOSPHATASE 73 U/L (38-126); ANION GAP 14 (5-19); ASPARTATE AMINO TRANSFERASE 18 U/L (17-59); BILIRUBIN,DIRECT 0.3 mg/dL (0.0-0.4); BILIRUBIN,TOTAL 0.8 mg/dL (0.2-1.3); BLOOD UREA NITROGEN 26 mg/dL (7-20); CALCIUM 9.5 mg/dL (8.4-10.2); CARBON DIOXIDE 29 mmol/L (22-30); CHLORIDE 95 mmol/L (98-107); CREATINE KINASE 75 U/L (55-170); GLUCOSE 137 mg/dL (75-110); POTASSIUM 3.4 mmol/L (3.6-5.0); TOTAL PROTEIN 7.9 g/dL (6.3-8.2)
--- NOTE | 2019-07-07 21:00 | RADIOLOGY REPORT (SQ) ---
EXAM DESCRIPTION: CT head without contrast CLINICAL HISTORY: 79 years Male, headache, neck pain COMPARISON: None. TECHNIQUE: Axial images of the head were performed without the use of intravenous contrast, with sagittal and coronal reformatted images. This exam was performed according to our departmental dose-optimization program which includes use of Automated Exposure Control, adjustment of the mA and/or kV according to patient size and/or use of iterative reconstruction technique. FINDINGS: No evidence of acute hemorrhage or infarct. No evidence of mass or hydrocephalus. There is cortical atrophy and chronic white matter ischemic changes. The visualized paranasal sinuses are clear. IMPRESSION: No acute finding.
[2019-07-07 21:08] LABS: ABSOLUTE BASOPHILS # (AUTO) 0.1 10^3/uL (0.0-0.2); ABSOLUTE LYMPHOCYTES (AUTO) 0.8 10^3/uL (0.5-4.7); ABSOLUTE MONOCYTES (AUTO) 1.1 10^3/uL (0.1-1.4); ABSOLUTE NEUT (AUTO) 8.5 10^3/uL (1.7-8.2); BASOPHILS % (AUTO) 0.6 % (0-2); HEMATOCRIT 36.1 % (37.9-51.0); HEMOGLOBIN 12.4 g/dL (13.5-17.0); LYMPHOCYTES % (AUTO) 7.5 % (13-45); MEAN CORPUSCULAR HEMOGLOBIN 28.5 pg (27.0-33.4); MEAN CORPUSCULAR HGB CONC 34.3 g/dL (32.0-36.0); MEAN CORPUSCULAR VOLUME 83 fl (80-97); MONOCYTES % (AUTO) 10.4 % (3-13); PLATELET COUNT 192 10^3/uL (150-450); RED BLOOD COUNT 4.35 10^6/uL (4.35-5.55); RED CELL DISTRIBUTION WIDTH 13.9 % (11.5-14.0); SEGMENTED NEUTROPHILS % (AUTO) 81.5 % (42-78); TOTAL CELLS COUNTED % (AUTO) 100 %; WHITE BLOOD COUNT 10.4 10^3/uL (4.0-10.5)
[2019-07-08] MEDS ORDERED: CYCLOBENZAPRINE HCL 10 MG TABLET PO ONE (01:01)
[2019-07-08] MEDS ORDERED: METHYLPREDNISOLONE ACETATE INJ 80 MG/1 ML VIAL IM ONE (01:01)
[2019-07-08] MEDS ORDERED: KETOROLAC TROMETHAMINE 60 MG/2 ML SDV IM ONE (01:01)
--- NOTE | 2019-07-08 01:06 | ER Document Report ---
ED General - General Chief Complaint: Neck Problem Stated Complaint: BACK PAIN Time Seen by Provider: 07/07/19 17:16 Primary Care Provider: GIBSON HAMMOND MD [Primary Care Provider] - Follow up as needed Mode of Arrival: Ambulatory Information source: Patient TRAVEL OUTSIDE OF THE [place] IN LAST 30 DAYS: No - HPI Onset: Other - over the last several days. Onset/Duration: Gradual Quality of pain: Sharp Severity: Moderate Pain Level: 3 Associated symptoms: None Exacerbated by: Movement, Walking Relieved by: Remaining still Similar symptoms previously: Yes - patient has chronic neck and back pains Recently seen / treated by doctor: Yes - patient saw his PCP and was just given Oxycodone Notes: 79 year old male with a history of Chronic Neck and Back Pain s/p multiple saleh rgeries, HTN, COPD, Arthritis, GERD here for acute on chronic neck and back pain. The patient denies recent trauma to his neck or back, numbness, tingling, weakness, bowel or bladder incontinence, urinary retention, saddle anesthesia. The patient says the pain in his low back radiates down both legs and the pain in his neck radiates down both his arms. The patient has had several back and neck surgeries but he has not followed up with a Spine Surgeon in years. - Related Data Allergies/Adverse Reactions: cat dander Allergy (Verified 07/07/19 17:16) dog dander Allergy (Verified 07/07/19 17:16) Home Medications: amlodipine/atorvastin. trazodone hcl. fluoxetime hcl. alfuzosin er. oxybutynin. oxycodone. finasteride Past Medical History - General Information source: Patient - Social History Smoking Status: Former Smoker Chew tobacco use (# tins/day): No Frequency of alcohol use: None Drug Abuse: None Family History: Reviewed & Not Pertinent Patient has suicidal ideation: No Patient has homicidal ideation: No - Past Medical History Cardiac Medical History: Reports: Hx Hypertension Denies: Hx Coronary Artery Disease, Hx Heart Attack Pulmonary Medical History: Reports: Hx Asthma, Hx Bronchitis, Hx COPD, Hx Pneumonia Neurological Medical History: Denies: Hx Cerebrovascular Accident, Hx Seizures Renal/ Medical History: Denies: Hx Peritoneal Dialysis GI Medical History: Reports: Hx Gastroesophageal Reflux Disease Musculoskeletal Medical History: Reports Hx Arthritis Psychiatric Medical History: Reports: Hx Depression Past Surgical History: Reports: Hx Nose Surgery, Hx Orthopedic Surgery - back/neck, Hx Tonsillectomy - Immunizations Immunizations up to date: Yes Hx Diphtheria, Pertussis, Tetanus Vaccination: No Hx Pneumococcal Vaccination: 06/08/04 Review of Systems - Review of Systems Constitutional: No symptoms reported EENT: No symptoms reported Cardiovascular: No symptoms reported Respiratory: No symptoms reported Gastrointestinal: No symptoms reported Genitourinary: No symptoms reported Male Genitourinary: No symptoms reported Musculoskeletal: Back pain, Neck pain Skin: No symptoms reported Hematologic/Lymphatic: No symptoms reported Neurological/Psychological: denies: Weakness, Numbness, Tingling -: Yes All other systems reviewed and negative Physical Exam - Vital signs Vitals: Temp Pulse Resp BP Pulse Ox 99.3 F 85 16 152/89 H 95 07/07/19 16:34 07/07/19 16:34 07/07/19 16:34 07/07/19 16:34 07/07/19 16:34 - Notes Notes: GENERAL: Well-appearing, well-nourished and in no acute distress. HEAD: Atraumatic, normocephalic. EYES: Pupils equal round and reactive to light, extraocular movements intact, sclera anicteric, conjunctiva are normal. ENT: TMs normal, nares patent, oropharynx clear without exudates. Moist mucous membranes. NECK: Normal range of motion, supple without lymphadenopathy or JVD. Tender over C spine with no step offs. LUNGS: Breath sounds clear to auscultation bilaterally and equal. No wheezes rales or rhonchi. HEART: Regular rate and rhythm without murmurs, rubs or gallops. ABDOMEN: Soft, nontender, normoactive bowel sounds. No guarding, no rebound. No masses appreciated. EXTREMITIES: Normal range of motion, no pitting or edema. No clubbing or cyanosis. BACK: tender over entire back with no step offs. Able to bend and move in all directions. NEUROLOGICAL: Cranial nerves II through XII grossly intact. Normal speech, normal gait. No decreased sensation in arms or legs or groin area. PSYCH: Normal mood, normal affect. SKIN: Warm, Dry, normal turgor, no rashes or lesions noted. Course - Re-evaluation Re-evalutation: 07/08/19 01:20 The patient has acute on chronic neck and back pain. He looks clinically well in the ER but clearly has arthritis on exam and on imaging (CT neck). Patient was given morphine before I saw the patient with some improvement of his symptoms. I ordered IM toradol, Depomedrol, and PO Flexeril. Patient told to follow up with his PCP and Spine Surgeon. Patient has Oxycodone already so I prescribed low dose Naproxen, Lidocaine Patches and a Medrol Dose pack. Patient has no signs or symptoms of cord compression on exam or based on his history. - Vital Signs Vital signs: Temp Pulse Resp BP Pulse Ox 99.1 F 81 18 180/88 H 95 07/07/19 22:12 07/07/19 22:12 07/07/19 22:12 07/07/19 22:12 07/07/19 22:12 - Laboratory Result Diagrams: 07/07/19 21:01 07/07/19 20:15 Laboratory results interpreted by me: 07/07/19 07/07/19 20:15 21:01 Hgb 12.4 L Hct 36.1 L Lymph % (Auto) 7.5 L Absolute Neuts (auto) 8.5 H Seg Neutrophils % 81.5 H Potassium 3.4 L Chloride 95 L BUN 26 H Est GFR (MDRD) Non-Af 57 L Glucose 137 H Discharge - Discharge Clinical Impression: Neck pain Back pain Qualifiers: Back pain location: low back pain Chronicity: chronic Back pain laterality: midline Sciatica presence: with sciatica Sciatica laterality: bilateral sciatica Qualified Code(s): M54.41 - Lumbago with sciatica, right side Condition: Stable Disposition: HOME, SELF-CARE Instructions: Arthritis ([facility]), Low Back Pain ([facility]) Additional Instructions: Follow up with your primary care doctor and with a Spine Surgeon. Use your previously prescribed pain medications along with the medications given today. Do not drive a car when taking pain medications or muscle relaxers. Prescriptions: Lidocaine [Lidocaine Pain Relief] 1 each TP DAILY 14 Days #14 adh..patch Methylprednisolone [Medrol Dosepack (4 mg/Tab) 21 Tab/Dosepak] 4 mg PO ASDIR PRN #21 tab.ds.pk PRN Reason: Naproxen [Naprosyn 250 mg Tablet] 250 mg PO DAILY PRN 7 Days #14 tablet PRN Reason: Referrals: GIBSON HAMMOND MD [Primary Care Provider] - Follow up as needed
[2019-07-08 03:05] VITALS: BP 138/71
== END 2019-07-08 02:07 | disposition home or self-care (01) ==
LOC: ER 16:15
DX: M54.41 Lumbago with sciatica, right side (principal); M54.2 Cervicalgia; R51 Headache; R68.83 Chills (without fever); I10 Essential (primary) hypertension; J44.9 Chronic obstructive pulmonary disease, unspecified; K21.9 Gastro-esophageal reflux disease without esophagitis
CPT/HCPCS: 99284; 96372; 36415; 82550; 83735; 85025; 80053; 81001; 70450; 72125; J1885; J1040; J2270

== ENCOUNTER → 2019-07-18 | Outpatient (CLI) | payer MEDICARE, OTHER ==
--- NOTE | 2019-07-18 13:47 | RADIOLOGY REPORT (SQ) ---
EXAM DESCRIPTION: MRI CERVICAL SPINE WITHOUT COMPLETED DATE/TIME: 07/18/2019 12:34 pm REASON FOR STUDY: RADICULOPATHY, CERVICAL REGION M54.12 RADICULOPATHY, CERVICAL REGION COMPARISON: CT of the cervical spine without contrast from 07/07/2019 TECHNIQUE: Sagittal and Axial imaging includes T1, T2, STIR and gradient echo sequences. LIMITATIONS: None. FINDINGS: ALIGNMENT: There is straightening of the normal lordotic curvature of the cervical spine w ith grade 1 anterolisthesis of C7 relative to T1. There is no craniocervical or atlantoaxial dissoci ation. VERTEBRAE: The cervical vertebral body heights are preserved. There is no fracture. BONE MARROW: Heterogeneous without a focal abnormality. DISCS: The intervertebral discs from C3-C4 to C7-T1 are narrowed and desiccated HARDWARE: None in the spine. CORD AND BASE OF BRAIN: No signal intensity abnormality. SOFT TISSUES: No abnormality. C1-C2: No spinal stenosis. C2-C3: Disc osteophyte complex that encroaches on the ventral aspect of the thecal sac, hypertrophy o f the ligamentum flavum, and degeneration of the facet joints. The combination of these findings res ults in mild compression of the thecal sac (without an associated cord signal abnormality) and mild t o moderate bilateral foraminal stenosis. C3-C4: Disc osteophyte complex that encroaches on the ventral aspect of the thecal sac, hypertrophy o f the ligamentum flavum, uncovertebral hypertrophy and degeneration of the facet joints. The combina tion of these findings results in mild compression of the thecal sac (without an associated cord sign al abnormality) and severe right and moderate left foraminal stenosis. C4-C5: Disc osteophyte complex that encroaches on the ventral aspect of the thecal sac, hypertrophy o f the ligamentum flavum, uncovertebral hypertrophy and degeneration of the facet joints. The combina tion of these findings results in mild to moderate compression of the thecal sac (without an associat ed cord signal abnormality) and severe bilateral foraminal stenosis. C5-C6: Disc osteophyte complex that encroaches on the ventral aspect of the thecal sac, hypertrophy o f the ligamentum flavum, uncovertebral hypertrophy and degeneration of the facet joints. The combina tion of these findings results in mild to moderate compression of the thecal sac (without an associat ed cord signal abnormality) and severe left and moderate to severe right foraminal stenosis. C6-C7: Disc osteophyte complex that encroaches on the ventral aspect of the thecal sac, hypertrophy o f the ligamentum flavum, uncovertebral hypertrophy and degeneration of the facet joints. The combina tion of these findings results in mild compression of the thecal sac (without an associated cord sign al abnormality) and severe left and moderate right foraminal stenosis. C7-T1: Moderate to severe bilateral foraminal stenosis. UPPER THORACIC: No spinal or foraminal stenosis. OTHER: No other finding. IMPRESSION: Advanced multilevel degenerative spondylosis and facet arthropathy of the cervical spine as detailed above. TECHNICAL DOCUMENTATION: JOB ID: [id number] 2010 [employer]- All Rights Reserved Reading location - IP/workstation name: [email or web address]
== END ==
LOC: RAD 11:03
PROVIDERS: ATTEND Internal Medicine
DX: M54.12 Radiculopathy, cervical region (principal); M25.78 Osteophyte, vertebrae; M47.892 Other spondylosis, cervical region
CPT/HCPCS: 72141

== ENCOUNTER 2019-09-14 11:22 | Emergency (ER) | payer OTHER, MEDICARE ==
[2019-09-14] MEDS ORDERED: METOCLOPRAMIDE HCL INJ/PF 10 MG/2 ML SDV IV ONE (12:10)
--- NOTE | 2019-09-14 12:11 | ER Document Report ---
ED Headache - General TRAVEL OUTSIDE OF THE [place] IN LAST 30 DAYS: No <CECILY STALLINGS Shima - Last Filed: 09/14/19 15:57> <THOMAS NIEVES JR - Last Filed: 09/14/19 16:33> - General Chief Complaint: Headache >24 hrs old Stated Complaint: HEADACHE Time Seen by Provider: 09/14/19 11:57 Primary Care Provider: GIBSON HAMMOND MD [Primary Care Provider] - Follow up as needed Notes: Patient is an 79-year-old male who presents to the emergency department with a chief complaint of a headache. Patient states that his headache started 5 days ago. Patient states that it is on the left side of his head. States that it is constant. Patient states that on the onset of his headache, was having a hard time chewing. Patient has a history of COPD, GERD, hypertension. He denies any chest pain or new difficulty breathing. (CECILY STALLINGS) - Related Data Allergies/Adverse Reactions: cat dander Allergy (Verified 09/14/19 15:49) dog dander Allergy (Verified 09/14/19 15:49) Past Medical History - Social History Smoking Status: Former Smoker Chew tobacco use (# tins/day): No Frequency of alcohol use: None Drug Abuse: None Family History: Reviewed & Not Pertinent Patient has suicidal ideation: No Patient has homicidal ideation: No - Past Medical History Cardiac Medical History: Reports: Hx Hypertension Denies: Hx Coronary Artery Disease, Hx Heart Attack Pulmonary Medical History: Reports: Hx Asthma, Hx Bronchitis, Hx COPD, Hx Pneumonia Neurological Medical History: Denies: Hx Cerebrovascular Accident, Hx Seizures Endocrine Medical History: Denies: Hx Diabetes Mellitus Type 1, Hx Diabetes Mellitus Type 2 Renal/ Medical History: Denies: Hx Peritoneal Dialysis GI Medical History: Reports: Hx Gastroesophageal Reflux Disease Musculoskeletal Medical History: Reports Hx Arthritis Psychiatric Medical History: Reports: Hx Depression Past Surgical History: Reports: Hx Nose Surgery, Hx Orthopedic Surgery - back/neck, Hx Tonsillectomy - Immunizations Immunizations up to date: Yes Hx Diphtheria, Pertussis, Tetanus Vaccination: No Hx Pneumococcal Vaccination: 06/08/04 <CHANDRAKANTCECILY M - Last Filed: 09/14/19 15:57> Review of Systems <CECILY STALLINGS - Last Filed: 09/14/19 15:57> - Review of Systems Notes: REVIEW OF SYSTEMS: CONSTITUTIONAL : Denies recent illness. Denies recent unintentional weight loss. Denies fever, chills, or sweats. EENT: Denies eye, ear, throat, or mouth pain, discharge, or symptoms. Denies nasal or sinus congestion. CARDIOVASCULAR: Denies chest pain. RESPIRATORY: Denies shortness of breath, cough, congestion, difficulty breathing, or wheezing. GASTROINTESTINAL: Denies nausea, vomiting, and diarrhea. Denies abdominal pain. Denies constipation. GENITOURINARY: Denies difficulty urinating, burning, blood in urine, urgency or frequency. MUSCULOSKELETAL: Denies neck and back pain. Denies joint pain or swelling. SKIN: Denies rash, itchiness, or lesions HEMATOLOGIC : Denies easy bruising or bleeding. LYMPHATIC: Denies swollen, painful, enlarged glands. NEUROLOGICAL: Denies no numbness or tingling denies weakness. Denies altered mental status. See HPI. PSYCHIATRIC: Denies stress, anxiety, alteration in sleep patterns, or depression. All other systems reviewed and negative. (CECILY STALLINGS) Physical Exam <CECILY STALLINGS - Last Filed: 09/14/19 15:57> - Vital signs Vitals: Temp Pulse Resp BP Pulse Ox 98.4 F 63 16 181/108 H 94 09/14/19 11:25 09/14/19 11:25 09/14/19 11:25 09/14/19 11:25 09/14/19 11:25 - Notes Notes: PHYSICAL EXAMINATION: GENERAL: Appears well, healthy, well-nourished, no acute distress. HEAD: Normocephalic, atraumatic. EYES: PERRL, conjunctiva normal, all extraocular movements intact, sclera nonicteric ENT: Moist mucous membranes. NECK: Supple, no noticeable swelling, redness, rash. Normal range of motion. LUNGS: Equal breath sounds bilaterally and clear to auscultation. No wheezes rales or rhonchi. CARDIOVASCULAR: S1-S2, regular rate, regular rhythm. Radial pulses 2+, normal. ABDOMEN: Normoactive bowel sounds. Soft, nontender, no guarding, no rebound tenderness, and no masses palpated. EXTREMITIES: Normal strength and range of motion, no pitting or edema. No cyanosis. NEUROLOGICAL: Moves all extremities upon command. Strength 5/5 in all extremities. Cranial nerves II through XII intact. Only deficit noted is peripheral vision on the right lateral side is blurred. PSYCH: Normal mood, normal affect. SKIN: Warm, dry. No rash, lesions, ulcerations noted. Normal skin turgor. (CECILY STALLINGS) Course - Laboratory Result Diagrams: 09/14/19 12:14 09/14/19 12:14 <CECILY STALLINGS - Last Filed: 09/14/19 15:57> - Laboratory Result Diagrams: 09/14/19 12:14 09/14/19 12:14 <STEFANITHOMAS JR - Last Filed: 09/14/19 16:33> - Re-evaluation Re-evalutation: 09/14/19 13:04 Dr. Nieves was called by Dr. Lo, the radiologist. Patient has a left occipital bleed. Surprisingly, there are no neurological deficits noted, other than the patient stating he is having blurred vision in his right peripheral vision. Patient has a 4.4 x 2.3 cm left occipital lobe hemorrhage. He also has a possible parenchymal hemorrhage in the right occipital lobe. No mass-effect noted. 09/14/19 13:27 I called [facility] transfer line. Will await callback from neurology. 09/14/19 I spoke with the neurologist over at [facility]. Due to the length of the patient's symptoms, he is recommending that the patient be admitted to the hospitalist. 09/14/19 14:[address] Mckeon, the hospitalist at [facility]. The patient will be accepted. Patient will receive another dose of hydralazine, amlodipine, and he will receive some Tylenol. 09/14/19 15:39 Patient's blood pressure has improved to 160/97. I called [facility] and the patient will be admitted to their stepdown unit. Hematology is unremarkable. Chemistries are also unremarkable. Urinalysis is normal. (CECILY STALLINGS) - Vital Signs Vital signs: Temp Pulse Resp BP Pulse Ox 98.4 F 63 16 160/97 H 99 09/14/19 11:25 09/14/19 11:25 09/14/19 15:33 09/14/19 15:33 09/14/19 15:33 - Laboratory Laboratory results interpreted by me: 09/14/19 09/14/19 12:14 12:14 RBC 4.22 L Hgb 12.2 L Hct 34.7 L RDW 14.8 H Carbon Dioxide 35 H Anion Gap 3 L BUN 23 H Critical Care Note - Critical Care Note Total time excluding time spent on procedures (mins): 90 <THOMAS NIEVES JR - Last Filed: 09/14/19 16:33> - Critical Care Note Comments: Please note I have been working with Cecily MERCHANT about this patient and aware of this patient and his report of bleed in the left occipital as read by radiologist Yuval. Also he is to be sent via ground unit to neurology [facility]. (THOMAS NIEVES JR) Discharge - Discharge Admitting Provider: Dr. Mckeon <CECILY STALLINGS - Last Filed: 09/14/19 15:57> <THOMAS NIEVES JR - Last Filed: 09/14/19 16:33> - Discharge Clinical Impression: Intracranial hemorrhage Headache Qualifiers: Headache type: unspecified Headache chronicity pattern: acute headache Intractability: not intractable Qualified Code(s): R51 - Headache Condition: Fair Disposition: [facility] Referrals: GIBSON HAMMOND MD [Primary Care Provider] - Follow up as needed
[2019-09-14 12:22] LABS: ABSOLUTE EOSINOPHILS # (AUTO) 0.1 10^3/uL (0.0-0.6); ABSOLUTE MONOCYTES (AUTO) 0.5 10^3/uL (0.1-1.4); ABSOLUTE NEUT (AUTO) 3.2 10^3/uL (1.7-8.2); BASOPHILS % (AUTO) 0.6 % (0-2); EOSINOPHILS % (AUTO) 2.2 % (0-6); HEMATOCRIT 34.7 % (37.9-51.0); HEMOGLOBIN 12.2 g/dL (13.5-17.0); LYMPHOCYTES % (AUTO) 20.2 % (13-45); MEAN CORPUSCULAR HEMOGLOBIN 28.9 pg (27.0-33.4); MEAN CORPUSCULAR HGB CONC 35.2 g/dL (32.0-36.0); MEAN CORPUSCULAR VOLUME 82 fl (80-97); MONOCYTES % (AUTO) 11.3 % (3-13); PLATELET COUNT 195 10^3/uL (150-450); RED BLOOD COUNT 4.22 10^6/uL (4.35-5.55); RED CELL DISTRIBUTION WIDTH 14.8 % (11.5-14.0); SEGMENTED NEUTROPHILS % (AUTO) 65.7 % (42-78); TOTAL CELLS COUNTED % (AUTO) 100 %; WHITE BLOOD COUNT 4.8 10^3/uL (4.0-10.5)
[2019-09-14 12:39] LABS: ALBUMIN 4.2 g/dL (3.5-5.0); ALKALINE PHOSPHATASE 61 U/L (38-126); ASPARTATE AMINO TRANSFERASE 19 U/L (17-59); BILIRUBIN,DIRECT 0.3 mg/dL (0.0-0.4); BILIRUBIN,TOTAL 0.3 mg/dL (0.2-1.3); BLOOD UREA NITROGEN 23 mg/dL (7-20); CALCIUM 8.9 mg/dL (8.4-10.2); CHLORIDE 100 mmol/L (98-107); GLUCOSE 101 mg/dL (75-110); POTASSIUM 3.9 mmol/L (3.6-5.0); TOTAL PROTEIN 6.9 g/dL (6.3-8.2)
[2019-09-14 12:44] LABS: CARBON DIOXIDE 35 mmol/L (22-30)
[2019-09-14 12:45] LABS: ANION GAP 3 (5-19)
--- NOTE | 2019-09-14 13:07 | RADIOLOGY REPORT (SQ) ---
EXAM DESCRIPTION: CT HEAD WITHOUT IMAGES COMPLETED DATE/TIME: 09/14/2019 12:54 pm REASON FOR STUDY: headache COMPARISON: 07/07/2019 TECHNIQUE: Axial images acquired through the brain without intravenous contrast. Images reviewed wi th bone, brain and subdural windows. Additional sagittal and coronal reconstructions were generated. Images stored on PACS. All CT scanners at this facility use dose modulation, iterative reconstruction, and/or weight based d osing when appropriate to reduce radiation dose to as low as reasonably achievable (ALARA). [facility]: Dose Right [facility]: CareDose [facility]: Dose Right [facility]: Teradose 4D [facility]: [employer] RADIATION DOSE: CT Rad equipment meets quality standard of care and radiation dose reduction techniq ues were employed. CTDIvol: 53.2 mGy. DLP: 1044 mGy-cm.mGy. LIMITATIONS: None. FINDINGS: VENTRICLES: Prominent. CEREBRUM: There is a focal hemorrhage in the left occipital lobe measured 4.4 by 2.3 cm. Surrounding vasogenic edema. There is mass effect with effacement of cortical sulci. No midline shift. There is diffuse decreased attenuation throughout the periventricular white matter consistent with small ve ssel disease. CEREBELLUM: There is a small amount of hemorrhage in the right occipital lobe most likely intraparenc hymal although possibly subarachnoid. This is best demonstrated on coronal reconstructions. EXTRAAXIAL SPACES: Age-related involutional change. No fluid collections. No masses. ORBITS AND GLOBE: No intra- or extraconal masses. Normal contour of globe without masses. CALVARIUM: No fracture. PARANASAL SINUSES: No fluid or mucosal thickening. SOFT TISSUES: No mass or hematoma. OTHER: No other significant finding. IMPRESSION: 1. 4.4 x 2.3 cm left occipital lobe hemorrhage with surrounding vasogenic edema. 2. Small most likely parenchymal hemorrhage in the right occipital lobe. No significant mass effect . EVIDENCE OF ACUTE STROKE: YES. COMMENT: Pertinent findings on the imaging study reported as a CRITICAL RESULT to Dr. Nieves at13 :01 on 09/14/2019. Category of Critical Result: Intraparenchymal hemorrhage TECHNICAL DOCUMENTATION: JOB ID: [id number] Quality ID # [id number]: Final reports with documentation of one or more dose reduction techniques (e.g., Au tomated exposure control, adjustment of the mA and/or kV according to patient size, use of iterative reconstruction technique) 2010 [employer]- All Rights Reserved Reading location - IP/workstation name: [email or web address]
[2019-09-14] MEDS ORDERED: NICARDIPINE HCL RTU, ISO-OS 20 MG/200 ML RTUINJ IV PRN (13:20)
[2019-09-14] MEDS ORDERED: HYDRALAZINE HCL INJ/PF 20 MG/1 ML SDV IV ONE ×2 (13:36→14:27)
[2019-09-14 13:42] LABS: APPEARANCE,URINE CLEAR; BILIRUBIN,URINE NEGATIVE (NEGATIVE); COLOR,URINE YELLOW; GLUCOSE, URINE NEGATIVE (NEGATIVE); KETONES,URINE NEGATIVE (NEGATIVE); LEUKOCYTE ESTERASE,URINE NEGATIVE (NEGATIVE); NITRITE,URINE NEGATIVE (NEGATIVE); PROTEIN,URINE NEGATIVE (NEGATIVE); URINE SPECIFIC GRAVITY 1.014; UROBILINOGEN,URINE NEGATIVE mg/dL (<2.0)
[2019-09-14] MEDS ORDERED: AMLODIPINE BESYLATE 10 MG TABLET PO ONE (14:45)
[2019-09-14] MEDS ORDERED: ACETAMINOPHEN 325 MG TABLET PO ONE (14:47)
[2019-09-14 17:20] VITALS: BP 114/73
--- NOTE | 2019-09-14 21:50 | EKG REPORT ---
SEVERITY:- ABNORMAL ECG - SINUS RHYTHM FIRST DEGREE AV BLOCK LEFT AXIS DEVIATION LEFT VENTRICULAR HYPERTROPHY PROLONGED QT INTERVAL : Confirmed by: Christel Young MD 14-Sep-2019 21:48:49
== END 2019-09-14 17:55 | disposition short-term general hospital (02) ==
LOC: ER 11:22
DX: I62.9 Nontraumatic intracranial hemorrhage, unspecified (principal); R51 Headache; H53.8 Other visual disturbances; I10 Essential (primary) hypertension
CPT/HCPCS: 93005; 96376; 99291; 99292; 96374; 96375; 36415; 85025; 80053; 81001; 70450; 93010; J0360; J2765

== ENCOUNTER 2020-03-10 14:40 | Emergency (ER) | payer OTHER, MEDICARE ==
[2020-03-10 15:18] LABS: ABSOLUTE LYMPHOCYTES (AUTO) 0.6 10^3/uL (0.5-4.7); ABSOLUTE MONOCYTES (AUTO) 0.3 10^3/uL (0.1-1.4); ABSOLUTE NEUT (AUTO) 4.3 10^3/uL (1.7-8.2); BASOPHILS % (AUTO) 0.6 % (0-2); EOSINOPHILS % (AUTO) 0.2 % (0-6); HEMATOCRIT 34.9 % (37.9-51.0); HEMOGLOBIN 12.4 g/dL (13.5-17.0); LYMPHOCYTES % (AUTO) 11.1 % (13-45); MEAN CORPUSCULAR HEMOGLOBIN 29.9 pg (27.0-33.4); MEAN CORPUSCULAR HGB CONC 35.7 g/dL (32.0-36.0); MEAN CORPUSCULAR VOLUME 84 fl (80-97); MONOCYTES % (AUTO) 6.5 % (3-13); PLATELET COUNT 218 10^3/uL (150-450); RED BLOOD COUNT 4.16 10^6/uL (4.35-5.55); RED CELL DISTRIBUTION WIDTH 13.5 % (11.5-14.0); SEGMENTED NEUTROPHILS % (AUTO) 81.6 % (42-78); TOTAL CELLS COUNTED % (AUTO) 100 %; WHITE BLOOD COUNT 5.3 10^3/uL (4.0-10.5)
[2020-03-10 15:42] LABS: ALBUMIN 4.2 g/dL (3.5-5.0); ALKALINE PHOSPHATASE 69 U/L (38-126); ANION GAP 9 (5-19); ASPARTATE AMINO TRANSFERASE 16 U/L (17-59); BILIRUBIN,DIRECT 0.2 mg/dL (0.0-0.4); BILIRUBIN,TOTAL 0.5 mg/dL (0.2-1.3); BLOOD UREA NITROGEN 21 mg/dL (7-20); CALCIUM 9.2 mg/dL (8.4-10.2); CARBON DIOXIDE 30 mmol/L (22-30); CHLORIDE 100 mmol/L (98-107); GLUCOSE 154 mg/dL (75-110); POTASSIUM 3.4 mmol/L (3.6-5.0); TOTAL PROTEIN 6.7 g/dL (6.3-8.2)
--- NOTE | 2020-03-10 15:48 | ER Document Report ---
ED General - General Chief Complaint: Altered Mental Status Stated Complaint: ALTERED MENTAL STATUS Time Seen by Provider: 03/10/20 15:05 Primary Care Provider: GIBSON HAMMOND MD [Primary Care Provider] - Follow up as needed Notes: HPI: 80-year-old male who presents today by EMS especially with a change in mental status around noon. Patient supposedly has a history of an aneurysm but unsure of the treatment for the aneurysm in the past. Supposedly the patient has had no fevers, vomiting, or diarrhea. Patient has had a history of dementia. ROS: See HPI Able to obtain secondary to patient's condition Reviewed vital signs and nursing note as charted by RN. PHYSICAL EXAM: CONSTITUTIONAL: Alert and does follow commands intermittently. He is smiling and seems very pleasant. He shakes his head no when I asked him if he is having any pain HEAD: Normocephalic; atraumatic EYES: PERRL; full extraocular range of motion ENT: Normal nose; no rhinorrhea; moist mucous membranes; pharynx without lesions noted NECK: Supple without meningismus; non-tender; no carotid bruit; no cervical lymphadenopathy, no masses CARD: Regular rate and rhythm; no murmurs; symmetric distal pulses RESP: Normal chest excursion without splinting or tachypnea; breath sounds clear and equal bilaterally ABD/GI: Normal bowel sounds; non-distended; soft, non-tender BACK: The back appears normal and is non-tender to palpation EXT: Normal ROM in all joints; non-tender to palpation; no edema SKIN: No acute lesions noted NEURO: CN 2-12 intact; 5/5 bilateral upper and lower extremity strength with sensation intact to light touch TRAVEL OUTSIDE OF THE [place] IN LAST 30 DAYS: No - Related Data Allergies/Adverse Reactions: cat dander Allergy (Verified 09/14/19 15:49) dog dander Allergy (Verified 09/14/19 15:49) Past Medical History - Social History Smoking Status: Never Smoker Frequency of alcohol use: None Drug Abuse: None Family History: Reviewed & Not Pertinent - Past Medical History Cardiac Medical History: Reports: Hx Hypercholesterolemia, Hx Hypertension Denies: Hx Coronary Artery Disease, Hx Heart Attack Pulmonary Medical History: Reports: Hx Asthma, Hx Bronchitis, Hx COPD, Hx Pneumonia, Hx Tuberculosis Neurological Medical History: Denies: Hx Cerebrovascular Accident, Hx Seizures Endocrine Medical History: Denies: Hx Diabetes Mellitus Type 1, Hx Diabetes Mellitus Type 2 Renal/ Medical History: Denies: Hx Peritoneal Dialysis GI Medical History: Reports: Hx Gastroesophageal Reflux Disease Musculoskeletal Medical History: Reports Hx Arthritis Psychiatric Medical History: Reports: Hx Depression Past Surgical History: Reports: Hx Appendectomy, Hx Nose Surgery, Hx Orthopedic Surgery - back/neck, Hx Tonsillectomy - Immunizations Immunizations up to date: Yes Hx Diphtheria, Pertussis, Tetanus Vaccination: No Hx Pneumococcal Vaccination: 06/08/04 Physical Exam - Vital signs Vitals: Temp 97.7 F 03/10/20 14:41 Course - Re-evaluation Re-evalutation: Given the above history and physical I did look up the patient's old charts and ordered a CT scan of the head and a coagulation profile. It appears that the patient had a occipital hemorrhage in September and was transferred to an outside hospital. Patient has no focal logical deficits which is some mild confusion. He does have a history of dementia. Given the previous history of an intraparenchymal hemorrhage, patient is not a TPA candidate. Patient VAN score is negative so is not an extraction candidate. EKG shows heart of 74, normal sinus rhythm, first-degree AV block, no obvious ST elevation or depression. 03/10/20 15:48 CT as recorded. This shows an acute parenchymal left parieto-occipital hemorrhage 5.3 x 3.7 cm with no apparent shift or herniation at this time. No change in neurologic exam. 03/10/20 15:58 I just called and spoke to the patient's son. He states that the patient was sent to [facility] but they stated that the aneurysm had ruptured so far in advance prior to their arrival at the facility that they did not provide any coiling. I have ordered tranexamic acid. I have ordered a Cardene drip given the patient's blood pressure of 180/80. Patient is not tachycardic or bradycardic. 03/10/20 16:36 I did call and speak directly to the neurosurgical physician assistant editor [facility]. She did agree with the Cardene drip. She agreed with the IV dose of Keppra. She would like us to not intubate if at all possible if the patient is protecting his airway for a better neurologic exam. She will talk to the neuro- interventional team as well. 03/10/20 16:58 [facility] states that they are on diversion. They have connected me to the neurology PA Mrs. Mcdonald. She has no change in my management plan. She states she will also talk to the interventional neurosu rgery team once again to see if they would like to evaluate for an aneurysmal rupture. She states that the previous imaging that the patient had did not show an aneurysm in that location and they believe that the previous bleed was a hypertensive bleed. 03/10/20 17:11 The neurology PA called once again. They will accept the patient ER to ER transfer. They will attempt to fly the patient. Patient is protecting his airway at this moment. Vital signs are stable with blood pressure improving. - Vital Signs Vital signs: Temp Pulse Resp BP Pulse Ox 97.7 F 64 16 199/85 H 99 03/10/20 14:42 03/10/20 14:48 03/10/20 14:48 03/10/20 14:48 03/10/20 14:48 - Laboratory Result Diagrams: 03/10/20 15:05 03/10/20 15:05 Laboratory results interpreted by me: 03/10/20 03/10/20 03/10/20 14:46 15:05 15:05 RBC 4.16 L Hgb 12.4 L Hct 34.9 L Lymph % (Auto) 11.1 L Seg Neutrophils % 81.6 H Potassium 3.4 L BUN 21 H Est GFR (MDRD) Non-Af 59 L Glucose 154 H POC Glucose 148 H AST 16 L PTH Intact 03/10/20 16:05 RBC Hgb Hct Lymph % (Auto) Seg Neutrophils % Potassium BUN Est GFR (MDRD) Non-Af Glucose POC Glucose AST PTH Intact 139.7 H Critical Care Note - Critical Care Note Total time excluding time spent on procedures (mins): 65 Discharge - Discharge Clinical Impression: Elevated blood pressure reading Intracerebral hemorrhage Qualifiers: Intracerebral hemorrhage etiology: nontraumatic Cerebral hemorrhage location: cerebral hemisphere, unspecified portion Laterality: left Qualified Code(s): I 61.2 - Nontraumatic intracerebral hemorrhage in hemisphere, unspecified Condition: Serious Disposition: [facility] Unit Admitted: ICU Referrals: GIBSON HAMMOND MD [Primary Care Provider] - Follow up as needed
[2020-03-10] MEDS ORDERED: TRANEXAMIC ACID INJ/PF 1,000 MG/10 ML SDV IV ONE (16:00)
--- NOTE | 2020-03-10 16:04 | RADIOLOGY REPORT (SQ) ---
EXAM DESCRIPTION: CT HEAD WITHOUT IMAGES COMPLETED DATE/TIME: 03/10/2020 2:27 pm REASON FOR STUDY: AMS COMPARISON: 09/14/2019. 07/07/2019. TECHNIQUE: Axial images acquired through the brain without intravenous contrast. Images reviewed wi th bone, brain and subdural windows. Additional sagittal and coronal reconstructions were generated. Images stored on PACS. All CT scanners at this facility use dose modulation, iterative reconstruction, and/or weight based d osing when appropriate to reduce radiation dose to as low as reasonably achievable (ALARA). [facility]: Dose Right [facility]: CareDose [facility]: Dose Right [facility]: Teradose 4D [facility]: [employer] RADIATION DOSE: CT Rad equipment meets quality standard of care and radiation dose reduction techniq ues were employed. CTDIvol: 53.2 mGy. DLP: 1017 mGy-cm. mGy. LIMITATIONS: None. FINDINGS: VENTRICLES: Normal size and contour. CEREBRUM: There is an acute 5.3 x 3.7 cm hemorrhage in the left posterior parietooccipital lobe. Ave rounding vasogenic edema and mass effect with flattening of the sulci. No evidence of herniation. No rmal carrera/white matter differentiation. There is moderate diffuse periventricular, deep, and subcort ical white matter hypodense attenuation consistent with moderate chronic small vessel ischemic change . There is intracranial atherosclerosis. . CEREBELLUM: No masses. No hemorrhage. No alteration of density. No evidence for acute infarction. EXTRAAXIAL SPACES: No fluid collections. No masses. ORBITS AND GLOBE: No intra- or extraconal masses. Normal contour of globe without masses. CALVARIUM: No fracture. PARANASAL SINUSES: No fluid or mucosal thickening. SOFT TISSUES: No mass or hematoma. OTHER: No other significant finding. IMPRESSION: Acute parenchymal hemorrhage in the left posterior parietal/occipital lobe with mild mas s effect. No evidence of herniation. Moderate chronic small vessel ischemic change. EVIDENCE OF ACUTE STROKE: YES. Hemorrhagic stroke. COMMENT: Findings discussed with Dr Melchor on 03/10/2020 at 1548 hours Eastern Time Quality ID # [id number]: Final reports with documentation of one or more dose reduction techniques (e.g., Au tomated exposure control, adjustment of the mA and/or kV according to patient size, use of iterative reconstruction technique) TECHNICAL DOCUMENTATION: JOB ID: [id number] [employer]- All Rights Reserved Reading location - IP/workstation name: [email or web address]
[2020-03-10] MEDS: NICARDIPINE HCL RTU, ISO-OS 20 MG/200 ML RTUINJ IV PRN ×2 (16:06→18:46)
[2020-03-10] MEDS ORDERED: MORPHINE SULFATE 10 MG/ML INJ IV ONE (16:09)
[2020-03-10] MEDS ORDERED: LEVETIRACETAM INJ/PF 500 MG/5 ML SDV IV ONE (16:34)
[2020-03-10 16:41] LABS: INTERNATIONAL RATION (INR) 1.02; PROTHROMBIN TIME 13.6 SEC (11.4-15.4)
[2020-03-10] MEDS ORDERED: LORAZEPAM INJ 2 MG/1 ML VIAL IV ONE (16:50)
[2020-03-10 18:44] VITALS: BP 135/63
--- NOTE | 2020-03-10 21:07 | EKG REPORT ---
SEVERITY:- ABNORMAL ECG - SINUS RHYTHM FIRST DEGREE AV BLOCK PROBABLE LEFT ATRIAL ABNORMALITY LEFT VENTRICULAR HYPERTROPHY PROLONGED QT INTERVAL : Confirmed by: Donnie Duque MD 10-Mar-2020 21:06:04
== END 2020-03-10 18:50 | disposition short-term general hospital (02) ==
LOC: ER 14:40
DX: I61.2 Nontraumatic intracerebral hemorrhage in hemisphere, unspecified (principal); R41.82 Altered mental status, unspecified; I10 Essential (primary) hypertension; I44.0 Atrioventricular block, first degree; J44.9 Chronic obstructive pulmonary disease, unspecified; Z91.048 Other nonmedicinal substance allergy status
CPT/HCPCS: 93005; 99291; 96375; 96365; 96366; 96368; 36415; 82962; 85025; 85610; 80053; 84484; 83970; 70450; 93010; J2270; J2060; J3490 ×2; J1953

== ENCOUNTER 2020-06-20 09:09 | Emergency (ER) | payer OTHER, MEDICARE ==
--- NOTE | 2020-06-20 10:25 | EKG REPORT ---
SEVERITY:- ABNORMAL ECG - SINUS RHYTHM MULTIFORM VENTRICULAR PREMATURE COMPLEXES LEFT ANTERIOR FASCICULAR BLOCK PROLONGED QT INTERVAL : Confirmed by: Christel Young MD 20-Jun-2020 10:25:21
[2020-06-20 10:46] LABS: ABSOLUTE EOSINOPHILS # (AUTO) 0.2 10^3/uL (0.0-0.6); ABSOLUTE LYMPHOCYTES (AUTO) 1.5 10^3/uL (0.5-4.7); ABSOLUTE MONOCYTES (AUTO) 0.8 10^3/uL (0.1-1.4); ABSOLUTE NEUT (AUTO) 5.1 10^3/uL (1.7-8.2); BASOPHILS % (AUTO) 0.5 % (0-2); EOSINOPHILS % (AUTO) 2.6 % (0-6); HEMATOCRIT 36.4 % (37.9-51.0); HEMOGLOBIN 12.7 g/dL (13.5-17.0); LYMPHOCYTES % (AUTO) 19.7 % (13-45); MEAN CORPUSCULAR HEMOGLOBIN 29.7 pg (27.0-33.4); MEAN CORPUSCULAR VOLUME 85 fl (80-97); MONOCYTES % (AUTO) 10.3 % (3-13); PLATELET COUNT 276 10^3/uL (150-450); RED BLOOD COUNT 4.28 10^6/uL (4.35-5.55); RED CELL DISTRIBUTION WIDTH 15.1 % (11.5-14.0); SEGMENTED NEUTROPHILS % (AUTO) 66.9 % (42-78); TOTAL CELLS COUNTED % (AUTO) 100 %; WHITE BLOOD COUNT 7.6 10^3/uL (4.0-10.5)
[2020-06-20 10:47] LABS: ALBUMIN 3.9 g/dL (3.5-5.0); ALKALINE PHOSPHATASE 70 U/L (38-126); ANION GAP 8 (5-19); ASPARTATE AMINO TRANSFERASE 15 U/L (17-59); BILIRUBIN,DIRECT 0.2 mg/dL (0.0-0.4); BILIRUBIN,TOTAL 0.7 mg/dL (0.2-1.3); BLOOD UREA NITROGEN 18 mg/dL (7-20); CALCIUM 9.5 mg/dL (8.4-10.2); CARBON DIOXIDE 28 mmol/L (22-30); CHLORIDE 105 mmol/L (98-107); GLUCOSE 95 mg/dL (75-110); POTASSIUM 3.1 mmol/L (3.6-5.0); TOTAL PROTEIN 6.9 g/dL (6.3-8.2)
--- NOTE | 2020-06-20 10:51 | ER Document Report ---
ED General - General Chief Complaint: Medical Complaint Stated Complaint: BLOOD PRESSURE ISSUES Time Seen by Provider: 06/20/20 10:30 Primary Care Provider: GIBSON HAMMOND MD [Primary Care Provider] - Follow up in 3-5 days Notes: Patient is a 80-year-old male who presents emergency department for high blood pressure. Patient has history of an occipital hemorrhage back in September. He also had a hemorrhage back in March. Patient's daughter in law states that he was sent home to rehab and he did have baseline confusion. Daughter in law states that the patient has not taken his losartan or amlodipine in the last 4 days. States that he was just started on Temazepam for his sleep as he has been not sleeping well over the past few months and has been sleep walking. She reports the patient has has increased blood pressure since he has been off his medications. Patient is unable to give any meaningful history as he is speaking both Tristanian and Estonian to me. Daughter in law states that he has been speaking Tristanian since the 1940's, but since his last hemorrhagic stroke in March, he has not gone back to baseline. TRAVEL OUTSIDE OF THE [place] IN LAST 30 DAYS: No - Related Data Allergies/Adverse Reactions: cat dander Allergy (Verified 09/14/19 15:49) dog dander Allergy (Verified 09/14/19 15:49) Home Medications: finasteride 5mg daily. Mcgestrol 40 mg daily. Clonidine 0.1mg TID. Potassium chloride 10 mEq daily. Fluoxetine 10 mL. Oxycodone 7.5- 325 Q8H. Albuterol Sulfate 2 puffs Q4H. Donepezil 5mg at night. temazepam 15 mg at night Past Medical History - General Information source: Relative - Social History Smoking Status: Unknown if Ever Smoked Family History: Reviewed & Not Pertinent Patient has homicidal ideation: No - Past Medical History Cardiac Medical History: Reports: Hx Hypercholesterolemia, Hx Hypertension Denies: Hx Coronary Artery Disease, Hx Heart Attack Pulmonary Medical History: Reports: Hx Asthma, Hx Bronchitis, Hx COPD, Hx Pneumonia, Hx Tuberculosis Neurological Medical History: Denies: Hx Cerebrovascular Accident, Hx Seizures Endocrine Medical History: Denies: Hx Diabetes Mellitus Type 1, Hx Diabetes Mellitus Type 2 Renal/ Medical History: Denies: Hx Peritoneal Dialysis GI Medical History: Reports: Hx Gastroesophageal Reflux Disease Musculoskeletal Medical History: Reports Hx Arthritis Psychiatric Medical History: Reports: Hx Depression Past Surgical History: Reports: Hx Appendectomy, Hx Nose Surgery, Hx Orthopedic Surgery - back/neck, Hx Tonsillectomy - Immunizations Immunizations up to date: Yes Hx Diphtheria, Pertussis, Tetanus Vaccination: No Hx Pneumococcal Vaccination: 06/08/04 Review of Systems - Review of Systems -: Yes ROS unobtainable due to patient's medical condition Physical Exam - Vital signs Vitals: Resp Pulse Ox 17 96 06/20/20 09:21 06/20/20 09:21 - Notes Notes: PHYSICAL EXAMINATION: GENERAL: Appears well, healthy, well-nourished, no acute distress. HEAD: Normocephalic, atraumatic. EYES: PERRL, conjunctiva normal, all extraocular movements intact, sclera nonicteric ENT: Moist mucous membranes. NECK: Supple, no noticeable swelling, redness, rash. Normal range of motion. LUNGS: Equal breath sounds bilaterally and clear to auscultation. No wheezes rales or rhonchi. CARDIOVASCULAR: S1-S2, regular rate, regular rhythm. Radial pulses 2+, normal. ABDOMEN: Normoactive bowel sounds. Soft, nontender, no guarding, no rebound te nderness, and no masses palpated. EXTREMITIES: Normal strength and range of motion, no pitting or edema. No cyanosis. NEUROLOGICAL: Moves all extremities upon command. Strength 5/5 in all extremi ties. PSYCH: Appears agitated. Speaking Estonian/Tristanian mixed together. SKIN: Warm, dry. No rash, lesions, ulcerations noted. Normal skin turgor. Course - Re-evaluation Re-evalutation: 06/20/20 10:55 Hematology shows a slight anemia with a hemoglobin of 12.7 and hematocrit of 36.4. Coagulation studies are unremarkable. Potassium is 3.1. Will give IV potassium. Discussed this case with Dr. Uribe, my attending. Will start a Cardene gtt, as his blood pressure is still high. 06/20/20 14:07 Unfortunately, the patient has pulled out his IV. Which his potassium to be a PEG tube. Patient's blood pressure is 185/113. The Cardene drip has been off. Per Dr. Uribe's recommendation, will give the patient a dose of Labetalol IV and will reassess. CT of the head is unremarkable and does not show any intracranial bleed. Does show chronic changes. Patient does not have any new neurological deficits therefore, I have a low suspicion for an ischemic stroke, plus patient does have a history of a recent intracranial bleed and would not be a candidate for any kind of TPA. 06/20/20 14:07 Reassessed the patient and his blood pressure is still high. He also pulled out his IV again. I suspect portion of his high blood pressure is due to agitation, as he is speaking half Estonian and half Tristanian to me. Instructed the nurse to take the blood pressure cuff off, give him his amlodipine, clonidine, and losartan via his PEG tube, as he has not had the amlodipine and losartan in the past 4 days. I had a very lengthy conversation with daughter in law at bedside and she states that she has not slept well in over a month and the patient just started Temazepam the other night due to him sleep walking. Discussed with her that the most important thing is to get his blood pressure down. Also discussed with her that due to the coronavirus pandemic, it would be best for the patient to go home and not be admitted in the hospital. She verbalized understanding. 06/20/20 17:45 Thankfully, the patient's blood pressure has improved. His diastolic is a little high at 101. Discussed with the [id number] that this is most likely because he is not in his normal environment and he keeps asking to go home. At this time, will discharge the patient. [id number] is in agreement with this plan. Advised her to warehouse picker his medications right away. She is in agreement with this plan. - Vital Signs Vital signs: Temp Pulse Resp BP Pulse Ox 98.2 F 17 148/101 H 97 06/20/20 09:26 06/20/20 16:10 06/20/20 17:42 06/20/20 17:00 - Laboratory Results Result Diagrams: 06/20/20 09:18 06/20/20 09:18 Laboratory Results Interpreted: 06/20/20 06/20/20 09:18 09:18 RBC 4.28 L Hgb 12.7 L Hct 36.4 L RDW 15.1 H Potassium 3.1 L AST 15 L Critical Laboratory Results Reviewed: No Critical Results - Radiology Results Critical Radiology Results Reviewed: No Critical Results - EKG Interpretation by Me Additional EKG results interpreted by me: 06/20/20 17:51 Sinus rhythm. Rate 75. OH 200; QRS 94; QT 460; QTc 514. No ST elevations or depressions noted. 2 multifocal PVCs noted. Critical Care Note - Critical Care Note Total time excluding time spent on procedures (mins): 35 Comments: Critical care time spent obtaining history from patient or surrogate, discussions with consultants, development of treatment plan with patient or surrogate, evaluation of patient's response to treatment, examination of patient, ordering and performing treatments and interventions, ordering and review of laboratory studies, re-evaluation of patient's condition, ordering and review of radiographic studies and review of old charts Discharge - Discharge Clinical Impression: Essential hypertension High blood pressure Qualifiers: Hypertension type: unspecified Qualified Code(s): I10 - Essential (primary) hypertension Condition: Stable Disposition: HOME, SELF-CARE Additional Instructions: You were seen today in the emergency department for high blood pressure. The CT of your head, thankfully was normal. Blood pressure went down with your blood pressure medication. Please make sure you do not skip a dose of these medications. Follow-up with your primary care provider in regards to this visit. Referrals: GIBSON HAMMOND MD [Primary Care Provider] - Follow up in 3-5 days
[2020-06-20] MEDS ORDERED: NICARDIPINE HCL RTU, ISO-OS 20 MG/200 ML RTUINJ IV PRN (10:54)
[2020-06-20 10:58] LABS: INTERNATIONAL RATION (INR) 0.99; PROTHROMBIN TIME 13.3 SEC (11.4-15.4)
--- NOTE | 2020-06-20 11:18 | RADIOLOGY REPORT (SQ) ---
EXAM DESCRIPTION: CT HEAD WITHOUT IMAGES COMPLETED DATE/TIME: 06/20/2020 11:03 am REASON FOR STUDY: high blood pressure; history of brain bleed COMPARISON: 03/10/2020 TECHNIQUE: Axial images acquired through the brain without intravenous contrast. Images reviewed wi th bone, brain and subdural windows. Additional sagittal and coronal reconstructions were generated. Images stored on PACS. All CT scanners at this facility use dose modulation, iterative reconstruction, and/or weight based d osing when appropriate to reduce radiation dose to as low as reasonably achievable (ALARA). [facility]: Dose Right [facility]: CareDose [facility]: Dose Right [facility]: Teradose 4D [facility]: [employer] RADIATION DOSE: CT Rad equipment meets quality standard of care and radiation dose reduction techniq ues were employed. CTDIvol: 53.2 mGy. DLP: 1097 mGy-cm.mGy. LIMITATIONS: None. FINDINGS: VENTRICLES: Prominent. CEREBRUM: No masses. No hemorrhage. No midline shift. Areas of low density in the white matter mos t likely due to chronic micro-vascular ischemic change. No evidence for acute infarction. CEREBELLUM: No masses. No hemorrhage. No alteration of density. No evidence for acute infarction. EXTRAAXIAL SPACES: Age-related involutional change. No fluid collections. No masses. ORBITS AND GLOBE: No intra- or extraconal masses. Normal contour of globe without masses. CALVARIUM: No fracture. PARANASAL SINUSES: No fluid or mucosal thickening. SOFT TISSUES: No mass or hematoma. OTHER: No other significant finding. IMPRESSION: CHRONIC CHANGES OF ATROPHY AND MICROVASCULAR ISCHEMIA. NO ACUTE PROCESS. EVIDENCE OF ACUTE STROKE: NO. TECHNICAL DOCUMENTATION: JOB ID: [id number] Quality ID # [id number]: Final reports with documentation of one or more dose reduction techniques (e.g., Au tomated exposure control, adjustment of the mA and/or kV according to patient size, use of iterative reconstruction technique) 2010 [employer]- All Rights Reserved Reading location - IP/workstation name: [email or web address]
[2020-06-20] MEDS ORDERED: POTASSI CL 20 MEQ/50 ML RIDER 20 MEQ/50 ML RTUPB IV SCH (13:00)
--- NOTE | 2020-06-20 13:30 | RADIOLOGY REPORT (SQ) ---
EXAM DESCRIPTION: CHEST SINGLE VIEW IMAGES COMPLETED DATE/TIME: 06/20/2020 1:16 pm REASON FOR STUDY: AMS COMPARISON: 01/26/2019. EXAM PARAMETERS: NUMBER OF VIEWS: One view. TECHNIQUE: Single frontal radiographic view of the chest acquired. RADIATION DOSE: NA LIMITATIONS: None. FINDINGS: LUNGS AND PLEURA: No opacities, masses or pneumothorax. No pleural effusion. MEDIASTINUM AND HILAR STRUCTURES: No masses. Contour normal. HEART AND VASCULAR STRUCTURES: Heart normal in size. Normal vasculature. BONES: No acute findings. HARDWARE: None in the chest. OTHER: No other significant finding. IMPRESSION: NO ACUTE RADIOGRAPHIC FINDING IN THE CHEST. TECHNICAL DOCUMENTATION: JOB ID: [id number] 2010 [employer]- All Rights Reserved Reading location - IP/workstation name: [email or web address]
[2020-06-20] MEDS ORDERED: LABETALOL HCL INJ 20 MG/4 ML DISP.SYRIN IV ONE (13:32)
[2020-06-20] MEDS ORDERED: POTASSIUM CHLORIDE 20 MEQ PACKET PEG ONE (13:37)
[2020-06-20] MEDS ORDERED: AMLODIPINE BESYLATE 10 MG TABLET PEG ONE (15:24)
[2020-06-20] MEDS ORDERED: LOSARTAN POTASSIUM 25 MG TABLET PEG ONE (15:24)
[2020-06-20] MEDS ORDERED: CLONIDINE HCL 0.1 MG TABLET PEG ONE (15:56)
[2020-06-20 16:13] LABS: APPEARANCE,URINE SLIGHTLY-CLOUDY; BILIRUBIN,URINE NEGATIVE (NEGATIVE); COLOR,URINE YELLOW; GLUCOSE, URINE NEGATIVE (NEGATIVE); KETONES,URINE NEGATIVE (NEGATIVE); PROTEIN,URINE NEGATIVE (NEGATIVE); URINE SPECIFIC GRAVITY 1.009; UROBILINOGEN,URINE NEGATIVE mg/dL (<2.0)
[2020-06-20 17:55] VITALS: BP 148/101
== END 2020-06-20 18:10 | disposition home or self-care (01) ==
LOC: ER 09:09
DX: I10 Essential (primary) hypertension (principal); T46.5X6A Underdosing of other antihypertensive drugs, initial encounter; T46.1X6A Underdosing of calcium-channel blockers, initial encounter; Z91.14 Patient's other noncompliance with medication regimen; D64.9 Anemia, unspecified; F51.3 Sleepwalking [somnambulism]; F32.9 Major depressive disorder, single episode, unspecified; J44.9 Chronic obstructive pulmonary disease, unspecified; Z79.899 Other long term (current) drug therapy; Z79.891 Long term (current) use of opiate analgesic; Z91.048 Other nonmedicinal substance allergy status
CPT/HCPCS: 93005; 99285; 96375; 96365; 96366; 96368; 36415; 85025; 85610; 85730; 80053; 81001; 71045; 70450; 93010; J3490 ×3; J3480

== ENCOUNTER 2020-06-26 21:52 | Emergency (ER) | payer OTHER, MEDICARE ==
[2020-06-26] MEDS ORDERED: ACETAMINOPHEN 325 MG TABLET PO ONE (22:03)
--- NOTE | 2020-06-26 22:03 | ER Document Report ---
ED General - General Chief Complaint: Altered Mental Status Stated Complaint: AMS Time Seen by Provider: 06/26/20 21:54 Primary Care Provider: GIBSON HAMMOND MD [Primary Care Provider] - 06/29/20 Notes: Patient is an 80-year-old male who comes emergency department for chief complaint of altered mental status. Patient was at home with his family, EMS reports that family stated that he was talking strangely, bizarrely, and more confused than usual. However they state that he had returned to baseline before EMS came to the house. Patient states he has headache but he denies chest pain, dizziness, focal numbness or weakness, or any other complaints. 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 He also has a history of hypertension and chronic pain on oxycodone. He is not on a blood thinner. No trauma, fever, vomiting, or other symptoms reported. TRAVEL OUTSIDE OF THE [place] IN LAST 30 DAYS: No - Related Data Allergies/Adverse Reactions: cat dander Allergy (Verified 09/14/19 15:49) dog dander Allergy (Verified 09/14/19 15:49) Past Medical History - General Information source: Patient, Emergency Med Personnel - Social History Smoking Status: Unknown if Ever Smoked Drug Abuse: None Lives with: Family Family History: Reviewed & Not Pertinent - Past Medical History Cardiac Medical History: Reports: Hx Hypercholesterolemia, Hx Hypertension Denies: Hx Coronary Artery Disease, Hx Heart Attack Pulmonary Medical History: Reports: Hx Asthma, Hx Bronchitis, Hx COPD, Hx Pneumonia, Hx Tuberculosis Neurological Medical History: Denies: Hx Cerebrovascular Accident, Hx Seizures Endocrine Medical History: Denies: Hx Diabetes Mellitus Type 1, Hx Diabetes Mellitus Type 2 Renal/ Medical History: Denies: Hx Peritoneal Dialysis GI Medical History: Reports: Hx Gastroesophageal Reflux Disease Musculoskeletal Medical History: Reports Hx Arthritis Psychiatric Medical History: Reports: Hx Depression Past Surgical History: Reports: Hx Appendectomy, Hx Nose Surgery, Hx Orthopedic Surgery - back/neck, Hx Tonsillectomy - Immunizations Immunizations up to date: Yes Hx Diphtheria, Pertussis, Tetanus Vaccination: Yes Hx Pneumococcal Vaccination: 06/08/04 Review of Systems - Review of Systems Constitutional: No symptoms reported EENT: No symptoms reported Cardiovascular: No symptoms reported Respiratory: No symptoms reported Gastrointestinal: No symptoms reported Genitourinary: No symptoms reported Male Genitourinary: No symptoms reported Musculoskeletal: No symptoms reported Skin: No symptoms reported Hematologic/Lymphatic: No symptoms reported Neurological/Psychological: See HPI Physical Exam - Vital signs Vitals: Pulse Ox 98 06/26/20 21:53 - Notes Notes: GENERAL: Alert, interacts well. No acute distress. HEAD: Normocephalic, atraumatic. EYES: Pupils equal, round, and reactive to light. Extraocular movements intact. ENT: Oral mucosa moist, tongue midline. Oropharynx unremarkable. Airway patent. NECK: Full range of motion. Supple. Trachea midline. No lymphadenopathy. LUNGS: Clear to auscultation bilaterally, no wheezes, rales, or rhonchi. No respiratory distress. Non-tender chest wall. HEART: Regular rate and rhythm. No murmur ABDOMEN: Soft, non-tender. Non-distended. J-tube in place without erythema, tenderness, swelling, or obvious complication. EXTREMITIES: Moves all 4 extremities spontaneously. No edema, normal radial and dorsalis pedis pulses bilaterally. No cyanosis. BACK: no cervical, thoracic, lumbar midline tenderness. No saddle anesthesia, normal distal neurovascular exam. Moves all extremities in full range of motion. NEUROLOGICAL: Alert and oriented to person but not to time, place, or events. Normal facial nerve evaluation. Normal finger-nose testing. Normal speech. Cranial nerves II through XII grossly intact. Strength 5/5 in all extremities. PSYCH: Occasionally irritable, otherwise unremarkable SKIN: Warm, dry, normal turgor. No rashes or lesions noted. Course - Re-evaluation Re-evalutation: 06/26/20 23:22 is at bedside now. She states that shortly after receiving his nighttime medication including his sleeping medication and oxycodone patient became very lethargic, unsteady, sounded like he was slurring his words, and she became concerned about him when she saw him. She states it is possible when I asked t hat her brother who medicated him also give him extra doses although she is not sure. Patient has returned to baseline however, he is currently at his baseline per at this time. Work-up is negative. I do believe his symptoms were secondary to medication side effects. I discussed work-up including old CVA and laboratory testing with , she states appreciation for evaluation and then they are ready to go home. She states she will make sure he does not accidentally receive additional doses of his medications. Blood pressure rechecked manually and is in the 170s. Patient with no complaints on reevaluation, did receive Tylenol here for complaints of headache initially. This will be closely rechecked with primary care provider. Discussed return precautions. states appreciation and agreement. Stable and well-appearing at time of discharge. did request something so he could go back to sleep when they get home because we woke him up after he received his pain medication and sleeping medication. This was provided. - Vital Signs Vital signs: Temp Pulse Resp BP Pulse Ox 15 179/82 H 98 06/26/20 23:03 06/26/20 23:28 06/26/20 23:28 - Laboratory Results Result Diagrams: 06/26/20 22:32 06/26/20 22:32 Laboratory Results Interpreted: 06/26/20 22:32 RBC 3.99 L Hgb 12.0 L Hct 34.1 L RDW 14.3 H Critical Laboratory Results Reviewed: No Critical Results - Radiology Results Critical Radiology Results Reviewed: No Critical Results - EKG Interpretation by Me Additional EKG results interpreted by me: EKG shows sinus rhythm at a rate of 59, QTc borderline prolonged at 496, VA interval consistent with first-degree block at 240, left axis deviation. No T wave inversions or ST segment changes in consecutive leads. Discharge - Discharge Clinical Impression: Lethargy, Ataxia Condition: Stable Disposition: HOME, SELF-CARE Additional Instructions: His evaluation and work-up here did not show any concerning findings. I suspect his symptoms tonight were secondary to medication side effects. He did have an elevated blood pressure reading tonight, this needs to be rechecked by his primary care for management, follow-up closely, see referral. Return if he worsens including vomiting, obvious change from his normal status, fever, or any other concerning or worsening symptoms. Referrals: GIBSON HAMMOND MD [Primary Care Provider] - 06/29/20
[2020-06-26 22:33] LABS: APPEARANCE,URINE CLEAR; BILIRUBIN,URINE NEGATIVE (NEGATIVE); COLOR,URINE COLORLESS; GLUCOSE, URINE NEGATIVE (NEGATIVE); KETONES,URINE NEGATIVE (NEGATIVE); LEUKOCYTE ESTERASE,URINE NEGATIVE (NEGATIVE); NITRITE,URINE NEGATIVE (NEGATIVE); PROTEIN,URINE NEGATIVE (NEGATIVE); URINE SPECIFIC GRAVITY 1.003; UROBILINOGEN,URINE NEGATIVE mg/dL (<2.0)
--- NOTE | 2020-06-26 22:36 | RADIOLOGY REPORT (SQ) ---
EXAM DESCRIPTION: XR CHEST 1 VIEW COMPLETED DATE/TME: 06/26/2020 22:13 CLINICAL HISTORY: 80 years, Male, AMS COMPARISON: 06/20/2020 chest NUMBER OF VIEWS: 1 TECHNIQUE: Portable chest LIMITATIONS: None. FINDINGS: The heart is enlarged but stable. Osteopenia. Mild elevation of the left hemidiaphragm. Lungs are clear. No pneumothorax IMPRESSION: No acute cardiopulmonary process copyright 2010 [employer]- All Rights Reserved
--- NOTE | 2020-06-26 22:39 | RADIOLOGY REPORT (SQ) ---
EXAM DESCRIPTION: CT HEAD WITHOUT IV CONTRAST COMPLETED DATE/TME: 06/26/2020 22:17 CLINICAL HISTORY: 80 years, Male, Altered mental status, headache COMPARISON: Prior CT 06/20/2020 TECHNIQUE: 199 Images stored on PACS. All CT scanners at this facility use dose modulation, iterative reconstruction, and/or weight based dosing when appropriate to reduce radiation dose to as low as reasonably achievable (ALARA). [facility]: Dose Right [facility]: CareDose [facility]: Dose Right [facility]: Teradose 4D [facility]: [employer] LIMITATIONS: None. FINDINGS: The globes are intact. Postsurgical change of the right maxillary sinus. The paranasal sinuses and mastoid air cells are well aerated. No displaced or depressed skull fracture. No acute intracranial hemorrhage. CT is limited for evaluation of acute infarct. No CT evidence for large or territorial acute infarct. Diffuse atrophy with small vessel ischemic change. Old infarct in the left occipital region. No mass or midline shift. IMPRESSION: No acute intracranial abnormality. Atrophy with small vessel ischemic change. Old left occipital infarct TECHNICAL DOCUMENTATION: Quality ID # [id number]: Final reports with documentation of one or more dose reduction techniques (e.g., Automated exposure control, adjustment of the mA and/or kV according to patient size, use of iterative reconstruction technique) copyright 2011 [employer]- All Rights Reserved
[2020-06-26 22:41] LABS: ABSOLUTE EOSINOPHILS # (AUTO) 0.4 10^3/uL (0.0-0.6); ABSOLUTE MONOCYTES (AUTO) 0.7 10^3/uL (0.1-1.4); TOTAL CELLS COUNTED % (AUTO) 100 %; WHITE BLOOD COUNT 6.4 10^3/uL (4.0-10.5)
[2020-06-26 22:48] LABS: ABSOLUTE LYMPHOCYTES (AUTO) 1.3 10^3/uL (0.5-4.7); BASOPHILS % (AUTO) 0.7 % (0-2); EOSINOPHILS % (AUTO) 5.5 % (0-6); HEMATOCRIT 34.1 % (37.9-51.0); LYMPHOCYTES % (AUTO) 19.6 % (13-45); MEAN CORPUSCULAR HGB CONC 35.1 g/dL (32.0-36.0); MEAN CORPUSCULAR VOLUME 86 fl (80-97); MONOCYTES % (AUTO) 11.7 % (3-13); PLATELET COUNT 271 10^3/uL (150-450); RED BLOOD COUNT 3.99 10^6/uL (4.35-5.55); RED CELL DISTRIBUTION WIDTH 14.3 % (11.5-14.0); SEGMENTED NEUTROPHILS % (AUTO) 62.5 % (42-78)
[2020-06-26 22:53] LABS: URINE AMPHETAMINES SCREEN NEGATIVE; URINE BARBITURATES SCREEN NEGATIVE; URINE BENZODIAZEPINES SCREEN NEGATIVE; URINE COCAINE SCREEN NEGATIVE; URINE MARIJUANA (THC) SCREEN NEGATIVE; URINE METHADONE SCREEN NEGATIVE; URINE PHENCYCLIDINE SCREEN NEGATIVE
[2020-06-26 23:01] LABS: ALBUMIN 3.7 g/dL (3.5-5.0); ALCOHOL < 10 mg/dL (NONE DETECTED); ALKALINE PHOSPHATASE 66 U/L (38-126); ANION GAP 5 (5-19); ASPARTATE AMINO TRANSFERASE 17 U/L (17-59); BILIRUBIN,DIRECT 0.2 mg/dL (0.0-0.4); BILIRUBIN,TOTAL 0.4 mg/dL (0.2-1.3); BLOOD UREA NITROGEN 14 mg/dL (7-20); CALCIUM 8.9 mg/dL (8.4-10.2); CARBON DIOXIDE 29 mmol/L (22-30); CHLORIDE 104 mmol/L (98-107); GLUCOSE 104 mg/dL (75-110); POTASSIUM 3.6 mmol/L (3.6-5.0); TOTAL PROTEIN 6.7 g/dL (6.3-8.2)
[2020-06-26 23:29] VITALS: BP 179/82
[2020-06-26] MEDS ORDERED: HALOPERIDOL 5 MG TABLET PO ONE (23:30)
--- NOTE | 2020-06-27 07:26 | EKG REPORT ---
SEVERITY:- ABNORMAL ECG - SINUS RHYTHM FIRST DEGREE AV BLOCK LEFT AXIS DEVIATION BORDERLINE PROLONGED QT INTERVAL : Confirmed by: Donnie Duque MD 27-Jun-2020 07:25:44
== END 2020-06-26 23:56 | disposition home or self-care (01) ==
LOC: ER 21:52
DX: R53.83 Other fatigue (principal); R27.0 Ataxia, unspecified; R41.82 Altered mental status, unspecified; R51.9 Headache, unspecified; E78.00 Pure hypercholesterolemia, unspecified; I10 Essential (primary) hypertension; G89.29 Other chronic pain; Z79.891 Long term (current) use of opiate analgesic; Z93.4 Other artificial openings of gastrointestinal tract status
CPT/HCPCS: 36415; 70450; 71045; 80053; 80307; 81001; 83735; 85025; 93005; 93010; 99285